=== PATIENT | female | born 1970 | race Caucasian/White ===

== ENCOUNTER 2021-07-01 14:22 | Inpatient (IN) | payer MEDICAID, SELFPAY ==
[2021-07-01 14:23] VITALS: BP 172/119; PULSE 87; RESP 15; TEMP 35.9; O2SAT 98; BMI 39.7
--- NOTE | 2021-07-01 14:57 | EKG12_ITS ---
Test Reason : SWELLING Blood Pressure : / mmHG Vent. Rate : 086 BPM Atrial Rate : 086 BPM P-R Int : 150 ms QRS Dur : 110 ms QT Int : 400 ms P-R-T Axes : 051 -36 108 degrees QTc Int : 478 ms Normal sinus rhythm Left axis deviation Anterior infarct , age undetermined Abnormal ECG Confirmed by SAMAN JENSEN, AMY ([id number]), assistant film editor JEFF GLASGOW ([id number]) on 07/02/2021 1:53:57 P M Referred By: ANSON Confirmed By:DYLON DAVISON MD
--- NOTE | 2021-07-01 15:08 | EDS_ITS ---
HPI History of Present Illness Chief Complaint: Edema Informant: patient Onset/Context/Timing Onset: Days Context: Gradual Onset Timing: Continuous Current Severity: Mild Maximum Severity: Mild Narrative Narrative: 51-year-old female history of yes-[id number] diabetes, hypertension, prior kidney stones and stroke. Patient states that last week she has had swelling of her abdomen with weeping from the skin in both lower extremities. States she normally is not like this. Believes she has had decreased urination. Also short of breath with lying flat. Denies chest pain. Denies any history of cardiac disease or CHF. She is not had kidney problems except one time she had obstructive uropathy from stones and needed ureteral stents. Prior similar symptoms: No Recent Illness/Hospitalization: No [facility] Medical History (Updated 07/01/21 @ 18:[address] Solomon Menard MD) Asthma Bipolar 1 disorder Diabetes HTN (hypertension) with goal to be determined Kidney disease Obesity Schizoaffective disorder Home Medications aspirin 81 mg PO DAILY@0800 11/11/16 [History Last Taken Unknown] atorvastatin 20 mg PO QHS 11/11/16 [History Last Taken Unknown] lisinopril 20 mg PO DAILY 11/11/16 [History Last Taken Unknown] metformin 500 mg PO BIDCM 11/11/16 [History Last Taken Unknown] potassium chloride [K-Dur] 20 meq PO BID 11/11/16 [History Last Taken Unknown] venlafaxine 150 mg PO DAILY 11/11/16 [History Last Taken Unknown] albuterol 90 mcg INHALATION Q4H PRN 07/01/21 [History Last Taken Unknown] amlodipine 5 mg PO DAILY 07/01/21 [History Last Taken Unknown] oxybutynin chloride 10 mg PO DAILY 07/01/21 [History Last Taken Unknown] Allergy/AdvReac Type Severity Reaction Status Date / Time adhesive tape Allergy Unknown Verified 11/11/16 09:40 latex Allergy Unknown Verified 11/11/16 09:40 phenobarbital Allergy Unknown Verified 11/11/16 09:40 Social History Smoking Status: Current every day smoker tobacco type: cigarettes ROS ROS ED ROS Narrative Short of breath lying supine. Swelling in her legs and abdomen. Review of Systems ROS Unobtainable: Denies due to encephalopathy Constitutional Constitutional ED: Denies chills or fever(s) Eyes Eyes: Denies change in vision ENT ENT ED: Denies ear pain or sore throat Cardiovascular Cardiovascular: Reports orthopnea; Denies chest pain or palpitations Respiratory/Chest Respiratory/Chest: Reports dyspnea and orthopnea; Denies cough Gastrointestinal Gastrointestinal: Denies abdominal pain, constipation, diarrhea, melena, nausea or vomiting Genitourinary Genitourinary ED: Denies dysuria or hematuria Musculoskeletal Musculoskeletal: Denies myalgias Integumentary Denies rash Neurologic Neurologic: Denies headache(s) Psychiatric Psychiatric: Denies depression Endocrine Endocrinology: Denies polyuria Allergic/Immunologic Allergic/Immunologic ED: Denies urticaria EXAM Physical Exam Narrative Exam Narrative: Right female vital signs stable. Initial blood pressure 117/119. Pulse ox 90% on room air no signs hypoxia. HEENT exam unremarkable. Neck nontender no JVD. Lungs auscultation bilaterally. Heart regular rate and rhythm no murmur rate about 85. Abdomen morbidly obese. Edematous. No fever noted. Both lower extremities have 1+ pitting edema. Weeping fluid. She is moving all 4 extremities. Back nontender. Neurologically she is awake and alert. No focal motor deficits. Const Vital Signs: 07/01/21 14:23 07/01/21 15:08 07/01/21 15:22 Temperature 96.7 F L Temperature Source Temporal Pulse Rate 87 Respiratory Rate 15 Respiratory Effort Short of Breath Blood Pressure 172/119 H Blood Pressure Mean 136 Pulse Ox 98 Oxygen Delivery Method Room Air Room Air 07/01/21 16:49 Temperature Temperature Source Pulse Rate 64 Respiratory Rate 18 Respiratory Effort Blood Pressure 145/107 H Blood Pressure Mean 119 Pulse Ox 98 Oxygen Delivery Method Room Air Positive well nourished, well developed and obese; Negative for cachectic, contractures or unkempt General Appearance ED: well developed and NAD; Negative for unkempt, cachectic, contractures, cyanotic or diaphoretic Nutritional Appearance: obese; Negative for cachectic HEENT Reports moist mucous membranes Negative for trauma or tenderness Eyes PERRL and EOMs intact bilaterally Neck no lymphadenopathy, supple and no JVD Chest Wall inspection of chest normal and palpation of chest normal Resp normal respiratory effort and clear to auscultation bilaterally Effort and Inspection: Negative for pain with movement Auscultation: Negative for rales or rhonchi GI normal to inspection, nondistended, normoactive bowel sounds, non-tender, non- distended and no masses Auscultation: normoactive bowel sounds Palpation: soft; Negative for tender, guarding or rebound tenderness present Back/Spine no CVA tenderness Extremity Negative for normal to inspection General Extremety ED: Yes edema; Negative for tenderness General Extremity: edema Neuro oriented x3 and CN's II-XII intact bilaterally Sensorium / Orientation: alert and orientation impaired; Negative for lethargic or stuporous Motor Exam: strength 5/5 throughout Psych mental status grossly normal Appearance: Negative for unkempt Skin no rashes or lesions noted and no wounds MDM MDM MDM Narrative Medical decision making narrative: Middle-aged female with bilateral lower extremity edema and edema to her abdomen. Consider the settings of CHF versus obstructive uropathy versus renal failure other. She is being worked up for this. Repeat exam patient doing well at 6 PM. I spoke to the hospitalist physician assistant professor of psychology to admit the patient for further evaluation and work-up. Patient be given a dose of IV Lasix 40 mg. Lab Data Attestation: I reviewed the patient's lab results. Lab results narrative: CBC shows a white count 9.1. Hemoglobin 14.8. Electrolytes unremarkable gap is 7 normal BUN and creatinine is 12 and 0.8. Glu cose 133. Troponin normal at 44 BNP elevated at 2946. Chest x-ray shows a right pleural effusion and cardiomegaly. Labs: Laboratory Results - last 24 hr 07/01/21 07/01/21 07/01/21 15:20 15:20 15:20 WBC 11.1 H RBC 5.43 H Hgb 14.8 Hct 47.2 H MCV 86.9 MCH 27.3 MCHC 31.4 L RDW Std Deviation 52.1 H RDW Coeff of Fabrizio 16.9 H Plt Count 300 MPV 9.0 Immature Gran % (Auto) 0.400 Neut % (Auto) 82.8 H Lymph % (Auto) 10.3 L [place] % (Auto) 5.5 Eos % (Auto) 0.5 Baso % (Auto) 0.5 Absolute Neuts (auto) 9.2 H Absolute Lymphs (auto) 1.14 Nucleated RBC % 0 Sodium 139 Potassium 3.5 Chloride 102 Carbon Dioxide 30.0 Anion Gap 7 BUN 12 Creatinine 0.87 Estim Creat Clear Calc 70.39 Est GFR (MDRD) Af Amer 89 Est GFR (MDRD) Non-Af 74 BUN/Creatinine Ratio 13.8 Glucose 133 H Calcium 8.5 Troponin I High Sens 44 B-Natriuretic Peptide 2946.3 H Radiography Chest X-Ray - ED: 1 View and Read by ED Physician Diagnostic Testing: Clinical Impression(s) from Imaging Studies Chest X-Ray 07/01/21 15:20 IMPRESSION: Findings suggestive of atelectasis/infiltrate in the right lower lobe with blunting of the right costophrenic angle. Mild cardiomegaly. Electronically Signed: Ayan Wiggins MD at 15:37 EDT , Service support , Rhythm Strip Rhythm Strip: Sinus Rhythm Rate: 86 Ectopy: None EKG Initial EKG: Attestation: I personally reviewed and interpreted this EKG as follows: Interpretation: Sinus Rhythm and No Acute Injury Pattern Comments: Normal sinus rhythm rate 86 no acute signs of NH or ischemia. Prior EKG tracings: not available for review Discharge Plan Dx/Rx/DC Orders Clinical Impression: CHF (congestive heart failure), Peripheral edema, Pleural effusion Disposition Disposition: Acute Care Hospital [facility]
--- NOTE | 2021-07-01 15:20 | RAD_ITS ---
STUDY: X-RAY CHEST REASON FOR EXAM: Female, 51 years old. Chest pain TECHNIQUE: Single AP portable view of the chest. COMPARISON: Comparison is made with prior study 05/21/2012. FINDINGS: EKG are seen. There is elevation of the right hemidiaphragm with right basilar atelectasis and/or infiltrate. Blunting of the right costophrenic angle. There is mild cardiac enlargement. Normal mediastinum and raad. Normal visualized pulmonary arteries. Normal visualized aortic arch and descending thoracic aorta. Normal visualized thoracic spine. Normal visualized ribs, clavicles, and shoulders. There is no demonstrated abnormality of the visualized soft tissue structures of the upper abdomen. RAD/Chest 1 View (Portable) IMPRESSION: Findings suggestive of atelectasis/infiltrate in the right lower lobe with blunting of the right costophrenic angle. Mild cardiomegaly. Electronically Signed: Ayan Wiggins MD at 15:37 EDT , Service support ,
[2021-07-01 15:29] LABS: Absolute Lymphocyte Count 1.14 X10^3/uL (0.83-4.51); Absolute Neutrophil Count 9.2 X10^3/uL (2.0-7.7); Basophil# 0.05 X10^3/uL; Basophil% 0.5 % (0-1); Eosinophil# 0.05 X10^3/uL; Eosinophils% 0.5 % (0-5); Hematocrit 47.2 % (37-47); Hemoglobin 14.8 g/dL (12.0-15.0); Lymphocyte # 1.14 X10^3/ul (0.83-4.51); Lymphocyte % 10.3 % (19-41); Mean Corp Hgb Conc 31.4 g/dL (32-36); Mean Corpuscular Hgb 27.3 pg (27.0-32.0); Mean Corpuscular Volume 86.9 fL (81-99); Monocyte# 0.61 X10^3/uL; Monocyte% 5.5 % (0-10); NRBC Flagged by Analyzer 0 % (0-5); Neutrophil # 9.16 X10^3/uL (2.7-7.7); Neutrophil % 82.8 % (47-70); Platelet Count 300 K/mm3 (150-450); RBC Distribution Width CV 16.9 % (11.6-14.6); RBC Distribution Width SD 52.1 fl (35.1-43.9); Red Blood Count 5.43 M/mm3 (4.2-5.4); White Blood Count 11.1 K/mm3 (4.4-11.0)
[2021-07-01 15:55] LABS: BNP,B-Type NATRIURETIC PEPTIDE 2946.3 pg/mL (0-100)
[2021-07-01 16:00] LABS: Anion Gap 7 (5-15); BUN 12 mg/dL (7-18); BUN/Creat Ratio 13.8 RATIO (10-20); Calcium,Total 8.5 mg/dL (8.5-10.1); Chloride 102 mmol/L (98-107); Creatinine, Serum 0.87 mg/dL (0.55-1.02); EST Glomerular Filtration Rate 74 mL/min (>60); Est Glom Filt Rate - Afr Amer 89 mL/min (>60); Estimated Creatinine Clearance 70.39 ml/min; Glucose 133 mg/dL (74-106); Potassium 3.5 mmol/L (3.5-5.1); Sodium Level 139 mmol/L (136-145); Troponin-I HS 44 pg/mL (3.0-54.0)
[2021-07-01 16:49] VITALS: BP 145/107; PULSE 64; RESP 18; O2SAT 98
[2021-07-01] MEDS: Furosemide 40 MG/4 ML Vial IV (18:14)
[2021-07-01 18:19] VITALS: BP 143/66; PULSE 92; RESP 20; TEMP 37.1; O2SAT 98
--- NOTE | 2021-07-01 18:20 | HP.PCM_ITS ---
Documented by User: ZAIRA Castañeda 07/01/21 18:40 HPI - General General Date of Admission: 07/01/21 Date of Service: 07/01/21 Chief Complaint: Anasarca HPI Narrative SARAH CARLTON, is a 51 F who presents with complaints of increased swelling to belly and bilateral lower edema. Patient denies history of heart failure. Patient states that she was recently diagnosed with hypertension. Patient denies fever, chills, cough, chest pain, nausea, vomiting. Patient makes statements during evaluation regarding alien in her belly. Patient denies psychiatric disorders however patient does have history of schizoaffective disorder and bipolar disorder. [facility] Medical History (Updated 07/01/21 @ 18:30 by ZAIRA Castañeda) Asthma Bipolar 1 disorder Diabetes HTN (hypertension) with goal to be determined Kidney disease Obesity Schizoaffective disorder Home Medications aspirin 81 mg PO DAILY@0900 11/11/16 [History Last Taken 07/01/21] lisinopril 20 mg PO DAILY@0900 11/11/16 [History Last Taken 07/01/21] metformin 500 mg PO BIDCM@0900,1700 11/11/16 [History Last Taken 07/01/21] potassium chloride [K-Dur] 20 meq PO BID@0900,2100 11/11/16 [History Last Taken 07/01/21] venlafaxine 150 mg PO DAILY@0900 11/11/16 [History Last Taken 07/01/21] albuterol sulfate 2 inh INHALATION Q4H PRN 07/01/21 [History Last Taken 06/27/21] amlodipine 5 mg PO DAILY@0900 07/01/21 [History Last Taken 07/01/21] ondansetron 4 mg PO Q6H PRN 07/01/21 [History Last Taken Unknown] oxybutynin chloride 10 mg PO DAILY@0900 07/01/21 [History Last Taken 07/01/21] Allergy/AdvReac Type Severity Reaction Status Date / Time adhesive tape Allergy Unknown Verified 11/11/16 09:40 latex Allergy Unknown Verified 11/11/16 09:40 phenobarbital Allergy Unknown Verified 11/11/16 09:40 Family History unable to obtain unable to obtain Surgical History (Updated 07/01/21 @ 18:23 by ZAIRA Castañeda) History of cholecystectomy History of hysterectomy Social History (Updated 07/01/21 @ 18:24 by ZAIRA Castañeda) Smoking Status: Current every day smoker tobacco type: cigarettes alcohol intake: never substance use type: does not use ROS Constitutional Constitutional: Denies anorexia, chills, fatigue, fever(s), malaise or weakness Cardiovascular Cardiovascular: Reports edema; Denies chest pain, palpitations or syncope Respiratory/Chest Respiratory/Chest: Reports wheezing; Denies cough, shortness of breath at rest or shortness of breath with exertion Gastrointestinal Gastrointestinal: Denies abdominal pain, constipation, diarrhea, nausea or vomiting Genitourinary Genitourinary: Denies dysuria Musculoskeletal Musculoskeletal: Denies back pain, extremity pain, joint pain or joint stiffness Integumentary Integumentary: Denies dry skin Neurologic Neurologic: Denies abnormal gait, abnormal speech, confusion or dizziness Psychiatric Psychiatric: Denies anxiety or depression Endocrine Endocrinology: Denies change in body appearance Hematologic/Lymphatic Hematologic/Lymphatic: Denies anemia or easy bleeding Vital Signs Vital Signs Vital Signs: 07/01/21 14:23 07/01/21 15:08 07/01/21 15:22 Temperature 96.7 F L Temperature Source Temporal Pulse Rate 87 Respiratory Rate 15 Respiratory Effort Short of Breath Blood Pressure 172/119 H Blood Pressure Mean 136 Pulse Ox 98 Oxygen Delivery Method Room Air Room Air 07/01/21 16:49 Temperature Temperature Source Pulse Rate 64 Respiratory Rate 18 Respiratory Effort Blood Pressure 145/107 H Blood Pressure Mean 119 Pulse Ox 98 Oxygen Delivery Method Room Air Weight Weight: 239 lb Body Mass Index (BMI) 39.7 Physical Exam Const alert and oriented x3 General Appearance: cooperative HEENT normocephalic and head/scalp atraumatic Eyes conjunctivae normal and no scleral icterus Neck full ROM and supple General: trachea midline Resp normal respiratory effort and normal air movement Effort and Inspection: tachypneic Auscultation: wheezes expiratory wheezes and scattered wheezes and diminished lung sounds Cardio regular rate, regular rhythm, S1 normal heart sound, S2 normal heart sound and peripheral pulses 2+ throughout GI normal to inspection, nondistended, normoactive bowel sounds, soft to palpation and non-tender Extremity normal capillary refill and no clubbing, cyanosis or edema General Extremity: no tenderness to palpation of joints or extremities Skin General Skin Exam: no breakdown and turgor normal Lesions: no lesions Rashes: no rashes Neuro no focal motor deficits and no sensory deficits noted Speech: speech normal Motor Exam: Negative for general weakness Psych mental status grossly normal and cooperative Attitude: bizarre Activity / Motor Behavior: fidgetting and restless Speech: excessive Mood & Affect: elevated mood Thought Content: delusion(s) Delusional Thought Content Details: Positive for other (Patient states that she believes there was an alien in her bowing) Results Lab / Micro Data Result Diagrams: 07/01/21 15:20 07/01/21 15:20 Labs: Laboratory Results - last 24 hr 07/01/21 15:20: WBC 11.1 H, RBC 5.43 H, Hgb 14.8, Hct 47.2 H, MCV 86.9, MCH 27.3, MCHC 31.4 L, RDW Std Deviation 52.1 H, RDW Coeff of Fabrizio 16.9 H, Plt Count 300, MPV 9.0, Immature Gran % (Auto) 0.400, Neut % (Auto) 82.8 H, Lymph % (Auto) 10.3 L, [place] % (Auto) 5.5, Eos % (Auto) 0.5, Baso % (Auto) 0.5, Absolute Neuts (auto) 9.2 H, Absolute Lymphs (auto) 1.14, Nucleated RBC % 0 07/01/21 15:20: Sodium 139, Potassium 3.5, Chloride 102, Carbon Dioxide 30.0, Anion Gap 7, BUN 12, Creatinine 0.87, Estim Creat Clear Calc 70.39, Est GFR (MDRD) Af Amer 89, Est GFR (MDRD) Non-Af 74, BUN/Creatinine Ratio 13.8, Glucose 133 H, Calcium 8.5, Troponin I High Sens 44 07/01/21 15:20: B-Natriuretic Peptide 2946.3 H Rhythm Strip Rhythm Strip: Sinus Rhythm Rate: 86 Ectopy: None Radiology Impression Chest X-Ray 07/01/21 15:20 IMPRESSION: Findings suggestive of atelectasis/infiltrate in the right lower lobe with blunting of the right costophrenic angle. Mild cardiomegaly. Electronically Signed: Ayan Wiggins MD at 15:37 EDT , Service support , Assessment & Plan Assessment/Plan (1) CHF (congestive heart failure): QUALIFIERS: Heart failure chronicity: unspecified Heart failure type: unspecified Qualified Code(s): I50.9 - Heart failure, unspecified (2) Pleural effusion: (3) Peripheral edema: PLAN: 1. Congestive heart failure -Admit to PCU for new findings upon x-ray including right lower lobe infiltrate and mild cardiomegaly as well as elevated BNP -Trend cardiac enzymes -Daily weights with strict intake and output -Echocardiogram in a.m. -Elevate bilateral lower extremities -Encourage incentive spirometry -Patient will be initiated on IV Lasix drip at 10 mg/h and -CBC, BMP, lipid panel, magnesium, phosphorus, TSH ordered for a.m. -Repeat twelve-lead EKG ordered for a.m. -Patient currently on room air, oxygen ordered as needed -Cardiac carb-controlled diet ordered -Continue lisinopril, amlodipine. 2. Diabetes mellitus type 2 -AC at bedtime blood sugars with sliding scale insulin ordered -Continue Metformin -Hypoglycemia protocol ordered per protocol 3. Tobacco use -Nicotine patch ordered daily -Inpatient smoking cessation ordered Will continue patient's home medications for chronic diseases. DVT prophylaxis-subcu Lovenox This patient was seen by ZAIRA Castañeda under the supervision of Dr. Maria. Documented by User: Dr. Cem Maria DO 07/01/21 19:41 HPI - General General Date of Admission: 07/01/21 [facility] Medical History (Updated 07/01/21 @ 18:30 by ZAIRA Castañeda) Asthma Bipolar 1 disorder Diabetes HTN (hypertension) with goal to be determined Kidney disease Obesity Schizoaffective disorder Home Medications aspirin 81 mg PO DAILY@0900 11/11/16 [History Last Taken 07/01/21] lisinopril 20 mg PO DAILY@0900 11/11/16 [History Last Taken 07/01/21] metformin 500 mg PO BIDCM@0900,1700 11/11/16 [History Last Taken 07/01/21] potassium chloride [K-Dur] 20 meq PO BID@0900,2100 11/11/16 [History Last Taken 07/01/21] venlafaxine 150 mg PO DAILY@0900 11/11/16 [History Last Taken 07/01/21] albuterol sulfate 2 inh INHALATION Q4H PRN 07/01/21 [History Last Taken 06/27/21] amlodipine 5 mg PO DAILY@0900 07/01/21 [History Last Taken 07/01/21] ondansetron 4 mg PO Q6H PRN 07/01/21 [History Last Taken Unknown] oxybutynin chloride 10 mg PO DAILY@0900 07/01/21 [History Last Taken 07/01/21] Allergy/AdvReac Type Severity Reaction Status Date / Time adhesive tape Allergy Unknown Verified 11/11/16 09:40 latex Allergy Unknown Verified 11/11/16 09:40 phenobarbital Allergy Unknown Verified 11/11/16 09:40 Family History unable to obtain Surgical History (Updated 07/01/21 @ 18:23 by ZAIRA Castañeda) History of cholecystectomy History of hysterectomy Social History (Updated 07/01/21 @ 18:24 by Valeria Macdonald NP-C) Smoking Status: Current every day smoker tobacco type: cigarettes alcohol intake: never substance use type: does not use Results Lab / Micro Data Result Diagrams: 07/01/21 15:20 07/01/21 15:20 Charges/Coding Addendum Addendum: Patient was seen and examined independently of Suzie Alfredo, patient came to the emergency room at [facility] [place] for evaluation of severe swelling in her legs with weeping of fluid from her skin. Patient also complained of having swelling over her abdominal area. Finally, she complained of feeling short of breath especially when lying flat. Patient denied any chest pain, she denied any history of coronary artery disease, she stated that she has had strokes in the past. On examination she appeared her stated age, she does not appear to be in any distress, patient is morbidly obese. Vital signs as documented. Skin warm and dry and without overt rashes. Neck without JVD, thyroid appears normal, trachea is midline, neck is supple. Lungs clear, normal air movement was noted. Heart exam notable for regular rhythm, normal sounds and absence of murmurs, rubs or gallops. Abdomen-patient is morbidly obese, there is firm edema noted over the abdominal wall extending into the lower back, bowel sounds are present in all 4 quadrants, no abdominal tenderness was noted. Extremities-there is severe lower extremity edema noted along with weeping of the skin, the edema is firm and nonpitting, no cyanosis was noted, no clubbing was noted. Neuro: Cranial nerves II through XII are grossly intact, no focal motor deficits were noted, sensation to light touch and pinprick is intact, motor exam 5/5 throughout. Psych: Patient is alert and oriented x3, she does not appear anxious or depressed, she does not appear agitated. Patient has obvious anasarca, the etiology of the anasarca may be from an undetected cardiomyopathy. Patient will be admitted with a diagnosis of CHF and anasarca, she will need an echocardiogram performed, she will be placed on Lasix drip. I have reviewed Suzie Torres's history and physical including her medical assessment and plan of care and endorse it with the addition of #4 diagnosis: Morbid obesity, #5 diagnosis: Schizoaffective disorder, #6 diagnosis chronic asthma Visit Charges Inpatient E&M: 79602 Init Hosp L3
--- NOTE | 2021-07-01 19:24 | ECHOCS_ITS ---
Reason For Study: CHF Procedure This was a 2D Doppler, Color Flow transthoracic echocardiogram. The study was technically difficult. Due to body habitus. Contrast injection was performed. Exam performed portable in patient room. Left Ventricle Mildly dilated left ventricle. The estimated ejection fraction is 15 %. There is evidence of diastolic dysfunction. No regional wall motion abnormalities noted. Right Ventricle Mildly dilated right ventricle. Normal systolic function. Atria The left atrium is mildly enlarged. The right atrium is mildly enlarged. Mitral Valve There is no mitral valve stenosis. Trivial mitral valve insufficiency. Tricuspid Valve There is no tricuspid stenosis. Trivial tricuspid valve insufficiency. Pulmonary artery systolic pressure is 35-40 mmHg. Aortic Valve Trisinus/trileaflet aortic valve. There is no aortic stenosis. No aortic valve insufficiency. Pulmonic Valve There is no pulmonic valvular stenosis. Trivial pulmonic valve insufficiency. Great Vessels Normal aortic root. Pericardium/Pleural No pericardial effusion. Medication Diluted definity 5.0ml given slow IV push to enhance endocardial definition. MMode/2D Measurements & Calculations LVIDd: 6.0 cm IVSd: 1.1 cm Ao root diam: 2.8 cm LVIDs: 5.2 cm LVPWd: 1.2 cm RVDd: 4.2 cm FS: 13.1 % LAV(MOD-bp): 84.3 ml LVAd ap4: 49.6 cm2 LVAd ap2: 52.2 cm2 LAV(MOD-bp) Indexed: 35.2 ml/m2 LVLd ap4: 10.2 cm LVLd ap2: 10.6 cm LAV(MOD-sp2): 89.6 ml EDV(MOD-sp4): 197.5 ml EDV(MOD-sp2): 213.0 ml LAV(MOD-sp4): 79.3 ml EDV(sp4-el): 205.4 ml EDV(sp2-el): 218.7 ml LVAs ap4: 41.1 cm2 LVAs ap2: 41.2 cm2 LVLs ap4: 9.9 cm LVLs ap2: 9.1 cm ESV(MOD-sp4): 141.4 ml ESV(MOD-sp2): 153.1 ml ESV(sp4-el): 145.3 ml ESV(sp2-el): 158.8 ml EF(MOD-sp4): 28.4 % EF(MOD-sp2): 28.1 % EF(sp4-el): 29.2 % SV(MOD-sp4): 56.1 ml SV(MOD-sp2): 59.9 ml SV(sp4-el): 60.1 ml LA A4 area: 24.6 cm2 LA dimension(2D): 4.8 cm Doppler Measurements & Calculations Lat Peak E' Woodrow: 4.2 cm/sec MV V2 max: 120.0 cm/sec MV P1/2t max woodrow: 120.0 cm/sec MV max P.8 mmHg MV P1/2t: 43.0 msec MV V2 mean: 65.8 cm/sec MV mean P.0 mmHg MV dec slope: 817.9 cm/sec2 MV V2 VTI: 19.5 cm MVA(P1/2t): 5.1 cm2 Ao V2 max: 165.7 cm/sec LV V1 max: 86.0 cm/sec PA V2 max: 86.0 cm/sec Ao max P.0 mmHg LV V1 max P.0 mmHg TR max woodrow: 247.8 cm/sec TR max P.6 mmHg ECHO/Echo Complete W/ Contrast Interpretation Summary There is evidence of diastolic dysfunction. The left atrium is mildly enlarged. The right atrium is mildly enlarged. Mildly dilated right ventricle. Trivial mitral valve insufficiency. The estimated ejection fraction is 15 %. Ordering Physician: Valeria Macdonald Referring Physician: Sterling Carranza Performed By: Nataliia Faust, [place], RVT
[2021-07-01 19:35] VITALS: PULSE 85
[2021-07-01 19:52] VITALS: BP 153/114; PULSE 76; RESP 20; TEMP 36.4; O2SAT 96; BMI 51.2
[2021-07-01 20:30] LABS: Bedside Glucose 109 mg/dL (70-110)
[2021-07-01 21:08] LABS: Troponin-I HS 40 pg/mL (3.0-54.0)
[2021-07-01 21:52] LABS: Troponin-I HS 50 pg/mL (3.0-54.0)
[2021-07-01] MEDS: Furosemide 500 MG in Empty Viaflex 50 mL 1 EACH CONT INF (22:18)
[2021-07-01] MEDS: Atorvastatin Calcium 20 MG Tablet PO (22:24)
[2021-07-01] MEDS: Potassium Chloride Oral Tablet 20 MEQ PO (22:24)
--- NOTE | 2021-07-01 23:06 | PCS.PANDOC ---
PANDEMIC DOCUMENTATION INITIATED: Date: 04/27/2021 Time: 190
[2021-07-01 23:30] VITALS: O2SAT 99
[2021-07-01] MEDS: Nystatin Powder 15gm Bottle 1 APPLIC TOPICAL (23:38)
[2021-07-02] VITALS (9 sets, daily range): BP systolic 103–160; BP diastolic 48–118; PULSE 68–84; RESP 14–18; TEMP 36.5–36.8; O2SAT 92–100
[2021-07-02] MEDS: Acetaminophen 325 MG Tablet 650 MG PO (00:32)
[2021-07-02] MEDS: MELATONIN 3 MG TABLET PO (00:33)
--- NOTE | 2021-07-02 00:34 | NURSING ---
pt awake, c/o per abdullahi area hurting, rating it a 7/10. tylenol and melatonin given
[2021-07-02] MEDS: Nystatin Powder 15gm Bottle 1 APPLIC TOPICAL ×3 (05:43→21:39)
--- NOTE | 2021-07-02 05:55 | EKG12_ITS ---
Test Reason : AM EKG Blood Pressure : / mmHG Vent. Rate : 081 BPM Atrial Rate : 081 BPM P-R Int : 150 ms QRS Dur : 108 ms QT Int : 410 ms P-R-T Axes : 043 -32 092 degrees QTc Int : 476 ms Normal sinus rhythm Left axis deviation Poor R wave progression in anterior leads Abnormal ECG When compared with ECG of 01-JUL-2021 15:10, MANUAL COMPARISON REQUIRED, DATA IS UNCONFIRMED Confirmed by SAMAN JENSEN, AMY ([id number]), supervising editor news reel JEFF GLASGOW ([id number]) on 07/02/2021 1:59:41 P M Referred By: FERDINAND Confirmed By:DYLON DAVISON MD
[2021-07-02 06:09] LABS: Absolute Lymphocyte Count 1.28 X10^3/uL (0.83-4.51); Absolute Neutrophil Count 7.7 X10^3/uL (2.0-7.7); Basophil# 0.04 X10^3/uL; Basophil% 0.4 % (0-1); Eosinophil# 0.06 X10^3/uL; Eosinophils% 0.6 % (0-5); Hematocrit 47.6 % (37-47); Hemoglobin 14.6 g/dL (12.0-15.0); Lymphocyte # 1.28 X10^3/ul (0.83-4.51); Lymphocyte % 13.1 % (19-41); Mean Corp Hgb Conc 30.7 g/dL (32-36); Mean Corpuscular Hgb 26.8 pg (27.0-32.0); Mean Corpuscular Volume 87.5 fL (81-99); Mean Platelet Vol. 9.1 fl (6.2-12.0); Monocyte# 0.69 X10^3/uL; Monocyte% 7.1 % (0-10); NRBC Flagged by Analyzer 0 % (0-5); Neutrophil # 7.65 X10^3/uL (2.7-7.7); Neutrophil % 78.5 % (47-70); Platelet Count 296 K/mm3 (150-450); RBC Distribution Width CV 16.7 % (11.6-14.6); Red Blood Count 5.44 M/mm3 (4.2-5.4); White Blood Count 9.8 K/mm3 (4.4-11.0)
[2021-07-02 06:55] LABS: Anion Gap 7 (5-15); BUN 14 mg/dL (7-18); Calcium,Total 8.5 mg/dL (8.5-10.1); Chloride 102 mmol/L (98-107); Cholesterol 163 mg/dL (200); Creatinine, Serum 0.94 mg/dL (0.55-1.02); EST Glomerular Filtration Rate 68 mL/min (>60); Est Glom Filt Rate - Afr Amer 82 mL/min (>60); Estimated Creatinine Clearance 67.77 ml/min; Glucose 150 mg/dL (74-106); High Density Lipoprotein 40 mg/dL; Magnesium 1.8 mg/dL (1.6-2.6); Phosphorus 4.1 mg/dL (2.5-4.9); Potassium 3.5 mmol/L (3.5-5.1); Sodium Level 140 mmol/L (136-145); Thyroid Stim Hormone (TSH) 2.45 uIU/mL (0.358-3.74); Triglycerides 94 mg/dL; Very Low Density Lipoprotein 19 mg/dL (5-40)
[2021-07-02 07:20] LABS: Bedside Glucose 129 mg/dL (70-110)
[2021-07-02] MEDS: Enoxaparin 40 MG/0.4 ML Syringe SC (08:34)
[2021-07-02] MEDS: Lisinopril 20 MG Tablet PO (08:34)
[2021-07-02] MEDS: Potassium Chloride Oral Tablet 20 MEQ PO ×2 (08:34→21:37)
[2021-07-02] MEDS: metFORMIN HCl 500 MG Tablet PO (08:34)
[2021-07-02] MEDS: amLODIPine 5 MG Tablet PO (08:34)
[2021-07-02] MEDS: Aspirin E.C. 81 MG Tablet PO (08:34)
[2021-07-02] MEDS: Venlafaxine XR 150 MG Capsule PO (08:34)
[2021-07-02] MEDS: Tolterodine Tartrate 2 MG CAP.SA PO (08:34)
[2021-07-02] MEDS: Glucerna Shake 120 ML LIQUID PO ×2 (08:38→12:57)
--- NOTE | 2021-07-02 10:48 | CASEMGMT ---
CHRIS REEVES assessment: Face to Face with patient for initial transition planning/care coordination assessment. CHRIS REEVES introduced self and role at [facility], pt voices understanding and consents to assessment. Pt is sitting up on side of bed in no distress on room air. Pt is A/Ox4 and answers all questions appropriately. Care providers, pharmacy, and demographics verified/updated. Presentation: Pt c/o bilat lower extremity edema/weeping-pt states hx DM, HTN Admitting dx: CHF, peripheral edema PCP: -Pt requesting PCP list as she states her and Dr. Carranza will be 'parting ways'-in-network PCP list provided Specialists: Multiple specialists at [facility] main, including but not limited to: neuro, studio manager, etc Preferred Pharmacy: [facility] Insurance: [facility] Prescription Benefit: [facility] Living Will/HPOA: Pt states has LW/HPOA and is aware that they are not on file at [facility]. Pt states her son, You, is HPOA. LNOK: You Ortega, son/HPOA; Meera Chavarria, daughter Living Arrangements: Pt states lives in apartment at [facility] with her cat with no steps and states no concerns at home. Pt states has been having some difficulty with ADL's d/t increased fluid/CHF. Transportation: Pt states family drives or she walks where she needs to go and states no concerns at home. DME/HHC: Pt states has a rollator and grab bars. Pt states is 'working on getting a shower chair.' Pt states has had HHC in the past and has been to [facility]. Pt is interested in HHC and pt provided a list of HHC providers including quality and resource use data and consistent with the patient?s preferred geographic region, medical needs, and insurance network. Pt states no concerns with going home at time of discharge. Pt is disabled. Pt states smokes a pack of cigarettes daily and does not drink ETOH. Pt states no further concerns/needs. CM to follow for HHC and any further discharge planning/needs. Advised pt to ask for CM if any further questions/concerns/needs arise, voices understanding. Pt Goal: Home Plan: Home, pending HHC decision. [place] CHRIS REEVES
--- NOTE | 2021-07-02 13:00 | PCM.PN.HOSP ---
Documented by User: Annette Jaime CROSSBAR SWITCH ADJUSTER, CROSSBAR SWITCH ADJUSTER-C 07/02/21 13:17 Subjective Subjective Patient seen and examined. Reports improvement in shortness of breath and abdominal and lower extremity swelling. Denies new symptoms or complaints. Objective Data Objective Data Vital Signs: Vital Signs Temp Pulse Resp BP Pulse Ox 98.2 F 83 18 160/117 H 99 07/02/21 08:30 07/02/21 08:30 07/02/21 08:30 07/02/21 08:30 07/02/21 08:30 Oxygen Flow Rate (L/min) 2 Oxygen Delivery Method Room Air Weight: 313 lb 0.902 oz Body Mass Index (BMI) 51.2 Intake & Output: Intake and Output for Last 24 Hours 06/30/21 07/01/21 07/02/21 23:59 23:59 23:59 Intake Total 640 / 640 Output Total 4625 / 4625 Balance -3985 / -3985 Lab / Micro Data Result Diagrams: 07/02/21 05:45 07/02/21 05:45 Labs: Laboratory Results - last 24 hr 07/01/21 15:20: WBC 11.1 H, RBC 5.43 H, Hgb 14.8, Hct 47.2 H, MCV 86.9, MCH 27.3, MCHC 31.4 L, RDW Std Deviation 52.1 H, RDW Coeff of Fabrizio 16.9 H, Plt Count 300, MPV 9.0, Immature Gran % (Auto) 0.400, Neut % (Auto) 82.8 H, Lymph % (Auto) 10.3 L, Victoria % (Auto) 5.5, Eos % (Auto) 0.5, Baso % (Auto) 0.5, Absolute Neuts (auto) 9.2 H, Absolute Lymphs (auto) 1.14, Nucleated RBC % 0 07/01/21 15:20: Sodium 139, Potassium 3.5, Chloride 102, Carbon Dioxide 30.0, Anion Gap 7, BUN 12, Creatinine 0.87, Estim Creat Clear Calc 70.39, Est GFR (MDRD) Af Amer 89, Est GFR (MDRD) Non-Af 74, BUN/Creatinine Ratio 13.8, Glucose 133 H, Calcium 8.5, Troponin I High Sens 44 07/01/21 15:20: B-Natriuretic Peptide 2946.3 H 07/01/21 19:49: POC Glucose 109 07/01/21 20:10: Troponin I High Sens 40 07/01/21 21:11: Troponin I High Sens 50 07/02/21 05:45: WBC 9.8, RBC 5.44 H, Hgb 14.6, Hct 47.6 H, MCV 87.5, MCH 26.8 L, MCHC 30.7 L, RDW Std Deviation 53.0 H, RDW Coeff of Fabrizio 16.7 H, Plt Count 296, MPV 9.1, Immature Gran % (Auto) 0.300, Neut % (Auto) 78.5 H, Lymph % (Auto) 13.1 L, Victoria % (Auto) 7.1, Eos % (Auto) 0.6, Baso % (Auto) 0.4, Absolute Neuts (auto) 7.7, Absolute Lymphs (auto) 1.28, Nucleated RBC % 0 07/02/21 05:45: Sodium 140, Potassium 3.5, Chloride 102, Carbon Dioxide 31.0, Anion Gap 7, BUN 14, Creatinine 0.94, Estim Creat Clear Calc 67.77, Est GFR (MDRD) Af Amer 82, Est GFR (MDRD) Non-Af 68, BUN/Creatinine Ratio 15.0, Glucose 150 H, Calcium 8.5, Phosphorus 4.1, Magnesium 1.8, Triglycerides 94, Cholesterol 163, LDL Cholesterol 104, VLDL Cholesterol 19, HDL Cholesterol 40, TSH 2.45 07/02/21 07:14: POC Glucose 129 H Radiography Diagnostic Testing: Radiology Impression Chest X-Ray 07/01/21 15:20 IMPRESSION: Findings suggestive of atelectasis/infiltrate in the right lower lobe with blunting of the right costophrenic angle. Mild cardiomegaly. Electronically Signed: Ayan Wiggins MD at 15:37 EDT , Service support , Echocardiogram 07/01/21 19:24 Interpretation Summary There is evidence of diastolic dysfunction. The left atrium is mildly enlarged. The right atrium is mildly enlarged. Mildly dilated right ventricle. Trivial mitral valve insufficiency. The estimated ejection fraction is 15 %. Ordering Physician: Valeria Macdonald Referring Physician: Sterling Carranza Performed By: Nataliia Faust, CAROLINA, RVT Rhythm Strip Rhythm Strip: Sinus Rhythm Rate: 86 Ectopy: None Physical Exam Const alert, oriented x3 and no apparent distress Orientation / Consciousness: awake, oriented to person, oriented to place and oriented to time Nutritional Appearance: obese HEENT normocephalic and moist oral mucous membranes Eyes PERRL, EOMs intact bilaterally and conjunctivae normal Neck no lymphadenopathy Resp clear to auscultation bilaterally Auscultation: diminished lung sounds Cardio regular rate, regular rhythm and no murmurs Peripheral Pulses: pulses 2+ throughout GI normal to inspection, nondistended, normoactive bowel sounds, non-tender and non-distended Extremity normal to inspection General Extremity: edema bilateral lower extremity Details: moderate Skin no rashes or lesions noted Lesions: no lesions Rashes: no rashes Trauma: no lacerations or abrasions Neuro CN's II-XII intact bilaterally, no focal motor deficits, no sensory deficits noted and deep tendon reflexes 2+ bilaterally Psych mental status grossly normal and affect normal Assessment & Plan Assessment/Plan (1) CHF (congestive heart failure): QUALIFIERS: Heart failure chronicity: unspecified Heart failure type: unspecified Qualified Code(s): I50.9 - Heart failure, unspecified PLAN: 1. Acute heart failure with reduced ejection fraction-chest x-ray consistent with CHF. BNP 2946. Enzymes, TSH normal. Echocardiogram completed and demonstrates an EF of 15%. On Lasix drip. Strict I&O. Daily weight. Cardiology consulted. 2. Type 2 diabetes mellitus-Metformin on hold. Accu-Cheks with sliding scale insulin. Check hemoglobin A1c. 3. Hypertension-remains above goal, recently placed on amlodipine, lisinopril. Increase amlodipine to 10 mg daily and lisinopril to 20 mg twice daily. As needed hydralazine for systolic blood pressure greater than 160. 4. SHARI-previously on CPAP however has not worn in several years. Will need repeat sleep study as outpatient and follow-up with pulmonary medicine. 5. Morbid obesity-BMI 50. Dietitian consult. 6. Schizoaffective/bipolar disorder-on venlafaxine. 7. Mild intermittent asthma-no exacerbation. As needed albuterol aerosol. 8. Tobacco dependence-encouraged cessation. DVT prophylaxis-Lovenox subcu This patient was seen by Annette Jaime NP-C under the supervision of Dr. Tesfaye. Documented by User: Dr. Doris Tesfaye DO 07/02/21 18:25 Subjective Subjective This patient was seen in conjunction with Annette Jaime NP. The following is representation my independent history and physical examination. Please see below for addendum to the above. Patient states that her weight gain and swelling has been an ongoing issue. She states that she is fired her PCP because of her ignoring her issues. She was unclear exactly how long it had been going on, but it did indicate it had been going on for some time. She has multiple cardiovascular risk factors and at the time of my evaluation her echo was still pending. Objective Data Lab / Micro Data Result Diagrams: 07/02/21 05:45 07/02/21 05:45 Physical Exam Const alert, oriented x3 and no apparent distress Constitutional Narrative: Super morbidly obese white female lying in right side lying in bed, appears comfortable and nontoxic but markedly edematous Exam Limitations: no limitations Nutritional Appearance: morbidly obese HEENT head/scalp atraumatic, moist oral mucous membranes and oropharynx normal HEENT Narrative: Edentulous, Mallampati 3, thrush Head and Scalp: normocephalic Mouth: oral and palatal mucosa normal Resp normal respiratory effort, no retractions and no use of accessory muscles Resp Narrative: Diffusely diminished but exam is limited secondary to body habitus Auscultation: Negative for crackles, rales, rhonchi or wheezes Cardio regular rate, regular rhythm, S1 normal heart sound, S2 normal heart sound, no murmurs, no rub, no gallops, no clicks and no JVD GI normal to inspection, nondistended, normoactive bowel sounds, soft to palpation, non-tender and non-distended Extremity Extremity Narrative: Marked pitting edema bilateral lower extremities up into the thighs 3+ no cyanosis or clubbing General Extremity: edema Peripheral Pulses: Yes pulses 2+ throughout Skin no rashes or lesions noted, no wounds, skin turgor normal, no jaundice, no petechiae and no mottling Neuro oriented x3, CN's II-XII intact bilaterally, moves all extremities and no focal motor deficits Sensorium / Orientation: awake, alert, oriented to person, oriented to place and oriented to time Speech: speech normal Motor Exam: strength 5/5 throughout Psych Psych Narrative: Affect is somewhat strange but patient is appropriately interactive Assessment & Plan Assessment/Plan (1) Heart failure with reduced ejection fraction: (2) Anasarca: (3) Secondary right ventricular dilation: PLAN: Assessment: HFrEF Anasarca RV dysfunction-suspect secondary to COPD/SHARI/OHS [id number] Hypertension SHARI COPD Morbid obesity Urinary incontinence Schizoaffective disorder Bipolar disorder Plan: -Echocardiogram done today shows an EF of 15% which is a new diagnosis for her as well as dilated right ventricle and biatrial enlargement -Cardiology consult and suspect patient will need a left heart catheterization -Would be beneficial if a right and left heart catheterization were performed -Start BiPAP at night 27/04--> this may help with diuresis -Patient will need follow-up with pulmonary in us repeat sleep study as she has been noncompliant with her CPAP as of recently -Add carvedilol 6.25 mg twice daily -Continue lisinopril--> may need dose reduction will watch blood pressure closely -Discontinue amlodipine -Continue aspirin -Continue home diabetes regimen--> A1c on admission was 6.3 with a normal creatinine -Continue Lasix drip -We will considering adding Aldactone if patient tolerates the above changes well -Continue daily weights strict I's and O's with fluid and sodium restriction -Patient is down 2 kg from admission Charges/Coding Visit Charges Inpatient E&M: 01006 Subs Hosp L2
[2021-07-02 13:53] LABS: Hemoglobin A1c 6.3 % (3.8-5.6)
--- NOTE | 2021-07-02 13:57 | PCM.CONS.C ---
Assessment & Plan Assessment/Plan (1) CHF (congestive heart failure): QUALIFIERS: Heart failure type: unspecified Heart failure chronicity: unspecified Qualified Code(s): I50.9 - Heart failure, unspecified PLAN: Acute systolic heart failure. Improved. It will be reasonable to hold the amlodipine and add carvedilol 6.25 mg p.o. twice daily. Once the beta-carlin and ROSARIO inhibitor have been titrated to maximum tolerated levels, if the blood pressure is still elevated then we can add amlodipine. Continue Lasix drip for now. If the creatinine remains stable tomorrow and if the patient is able to lie down flat then we will proceed with coronary angiography to evaluate the cause for patient's severe LV dysfunction. Coronary angiography could be performed as an outpatient as well. Risks and benefits explained to the patient and patient wishes to proceed. HPI Consult Data Date of Consult: 07/02/21 HPI Narrative HPI Narrative: SARAH CARLTON, is a 51 F who presents with bilateral lower extremity swelling, shortness of breath and abdominal distention. Patient was found to be in heart failure and was started on Lasix drip. She has noticed improvement in her symptoms. 2D echo reveals an EF of 15%. Patient has been recently diagnosed with hypertension and also has diabetes, positive family history for premature coronary artery disease and is a smoker. Review of systems: All systems reviewed. All else is negative except as in HPI. [facility] Medical History Asthma Bipolar 1 disorder Diabetes HTN (hypertension) with goal to be determined Kidney disease Obesity Schizoaffective disorder Home Medications aspirin 81 mg PO DAILY@0900 11/11/16 [History Last Taken 07/01/21] lisinopril 20 mg PO DAILY@0900 11/11/16 [History Last Taken 07/01/21] metformin 500 mg PO BIDCM@0900,1700 11/11/16 [History Last Taken 07/01/21] potassium chloride [K-Dur] 20 meq PO BID@0900,2100 11/11/16 [History Last Taken 07/01/21] venlafaxine 150 mg PO DAILY@0900 11/11/16 [History Last Taken 07/01/21] albuterol sulfate 2 inh INHALATION Q4H PRN 07/01/21 [History Last Taken 06/27/21] amlodipine 5 mg PO DAILY@0900 07/01/21 [History Last Taken 07/01/21] ondansetron 4 mg PO Q6H PRN 07/01/21 [History Last Taken Unknown] oxybutynin chloride 10 mg PO DAILY@0900 07/01/21 [History Last Taken 07/01/21] Allergy/AdvReac Type Severity Reaction Status Date / Time adhesive tape Allergy Unknown Verified 11/11/16 09:40 latex Allergy Unknown Verified 11/11/16 09:40 phenobarbital Allergy Unknown Verified 11/11/16 09:40 Family History (Updated 07/01/21 @ 20:09 by Coretta Abbasi) Other Colon cancer Diabetes Heart disease Lung cancer Stomach cancer Uterine cancer Family History unable to obtain Surgical History History of cholecystectomy History of hysterectomy Social History (Updated 07/01/21 @ 20:10 by Coretta Abbasi) household members: children number of children: 3 current occupational status: disabled Smoking Status: Current every day smoker tobacco type: cigarettes alcohol intake: never substance use type: does not use Physical Exam Const alert and oriented x3 Orientation / Consciousness: awake HEENT normocephalic Eyes no scleral icterus Neck Neck Narrative: Jugular vein appears to be distended Resp normal respiratory effort Resp Narrative: Decreased breath sounds in both bases Cardio regular rate Extremity General Extremity: edema bilateral lower extremity Details: moderate Skin no rashes or lesions noted Neuro oriented x3 Psych mental status grossly normal Risk Stratification Risk Stratification Applicable: No Charges/Coding Visit Charges Inpatient E&M: 52693 Init Hosp L3 Objective Data Vital Signs: Vital Signs Temp Pulse Resp BP Pulse Ox 98.2 F 83 18 160/117 H 99 07/02/21 08:30 07/02/21 08:30 07/02/21 08:30 07/02/21 08:30 07/02/21 08:30 Oxygen Flow Rate (L/min) 2 Oxygen Delivery Method Room Air Weight: 313 lb 0.902 oz Body Mass Index (BMI) 51.2 Intake & Output: Intake and Output for Last 24 Hours 06/30/21 07/01/21 07/02/21 23:59 23:59 23:59 Intake Total 640 / 640 Output Total 4625 / 4625 Balance -3985 / -3985 Lab / Micro Data Result Diagrams: 07/02/21 05:45 07/02/21 05:45 Labs: Laboratory Results - last 24 hr 07/01/21 15:20: WBC 11.1 H, RBC 5.43 H, Hgb 14.8, Hct 47.2 H, MCV 86.9, MCH 27.3, MCHC 31.4 L, RDW Std Deviation 52.1 H, RDW Coeff of Fabrizio 16.9 H, Plt Count 300, MPV 9.0, Immature Gran % (Auto) 0.400, Neut % (Auto) 82.8 H, Lymph % (Auto) 10.3 L, King % (Auto) 5.5, Eos % (Auto) 0.5, Baso % (Auto) 0.5, Absolute Neuts (auto) 9.2 H, Absolute Lymphs (auto) 1.14, Nucleated RBC % 0 07/01/21 15:20: Sodium 139, Potassium 3.5, Chloride 102, Carbon Dioxide 30.0, Anion Gap 7, BUN 12, Creatinine 0.87, Estim Creat Clear Calc 70.39, Est GFR (MDRD) Af Amer 89, Est GFR (MDRD) Non-Af 74, BUN/Creatinine Ratio 13.8, Glucose 133 H, Calcium 8.5, Troponin I High Sens 44 07/01/21 15:20: B-Natriuretic Peptide 2946.3 H 07/01/21 19:49: POC Glucose 109 07/01/21 20:10: Troponin I High Sens 40 07/01/21 21:11: Troponin I High Sens 50 07/02/21 05:45: WBC 9.8, RBC 5.44 H, Hgb 14.6, Hct 47.6 H, MCV 87.5, MCH 26.8 L, MCHC 30.7 L, RDW Std Deviation 53.0 H, RDW Coeff of Fabrizio 16.7 H, Plt Count 296, MPV 9.1, Immature Gran % (Auto) 0.300, Neut % (Auto) 78.5 H, Lymph % (Auto) 13.1 L, King % (Auto) 7.1, Eos % (Auto) 0.6, Baso % (Auto) 0.4, Absolute Neuts (auto) 7.7, Absolute Lymphs (auto) 1.28, Nucleated RBC % 0 07/02/21 05:45: Sodium 140, Potassium 3.5, Chloride 102, Carbon Dioxide 31.0, Anion Gap 7, BUN 14, Creatinine 0.94, Estim Creat Clear Calc 67.77, Est GFR (MDRD) Af Amer 82, Est GFR (MDRD) Non-Af 68, BUN/Creatinine Ratio 15.0, Glucose 150 H, Calcium 8.5, Phosphorus 4.1, Magnesium 1.8, Triglycerides 94, Cholesterol 163, LDL Cholesterol 104, VLDL Cholesterol 19, HDL Cholesterol 40, TSH 2.45 07/02/21 05:45: Hemoglobin A1c 6.3 H 07/02/21 07:14: POC Glucose 129 H Rhythm Strip Rhythm Strip: Sinus Rhythm Rate: 86 Ectopy: None Cardiology Labs/Tests 07/01/21 15:20: WBC 11.1 H, RBC 5.43 H, Hgb 14.8, Hct 47.2 H, MCV 86.9, MCH 27.3, MCHC 31.4 L, Plt Count 300, MPV 9.0, Immature Gran % (Auto) 0.400, Neut % (Auto) 82.8 H, Lymph % (Auto) 10.3 L, King % (Auto) 5.5, Eos % (Auto) 0.5, Baso % (Auto) 0.5, Absolute Neuts (auto) 9.2 H, Nucleated RBC % 0 07/01/21 15:20: Sodium 139, Potassium 3.5, Chloride 102, Carbon Dioxide 30.0, Anion Gap 7, BUN 12, Creatinine 0.87, Est GFR (MDRD) Af Amer 89, Est GFR (MDRD) Non-Af 74, BUN/Creatinine Ratio 13.8, Glucose 133 H, Calcium 8.5 07/01/21 15:20: B-Natriuretic Peptide 2946.3 H 07/02/21 05:45: WBC 9.8, RBC 5.44 H, Hgb 14.6, Hct 47.6 H, MCV 87.5, MCH 26.8 L, MCHC 30.7 L, Plt Count 296, MPV 9.1, Immature Gran % (Auto) 0.300, Neut % (Auto) 78.5 H, Lymph % (Auto) 13.1 L, King % (Auto) 7.1, Eos % (Auto) 0.6, Baso % (Auto) 0.4, Absolute Neuts (auto) 7.7, Nucleated RBC % 0 07/02/21 05:45: Sodium 140, Potassium 3.5, Chloride 102, Carbon Dioxide 31.0, Anion Gap 7, BUN 14, Creatinine 0.94, Est GFR (MDRD) Af Amer 82, Est GFR (MDRD) Non-Af 68, BUN/Creatinine Ratio 15.0, Glucose 150 H, Calcium 8.5, Phosphorus 4.1, Magnesium 1.8, Triglycerides 94, Cholesterol 163, LDL Cholesterol 104, VLDL Cholesterol 19, HDL Cholesterol 40 07/02/21 05:45: Hemoglobin A1c 6.3 H Rhythm: EKG: ECHO: Stress Test: Cardiac Cath: PCI: CT Surgery: Holter monitor: EPS: PPM: CXR: Chest CT Scan: Radiography Diagnostic Testing: Radiology Impression Chest X-Ray 07/01/21 15:20 IMPRESSION: Findings suggestive of atelectasis/infiltrate in the right lower lobe with blunting of the right costophrenic angle. Mild cardiomegaly. Electronically Signed: Ayan Wiggins MD at 15:37 EDT , Service support , Echocardiogram 07/01/21 19:24 Interpretation Summary There is evidence of diastolic dysfunction. The left atrium is mildly enlarged. The right atrium is mildly enlarged. Mildly dilated right ventricle. Trivial mitral valve insufficiency. The estimated ejection fraction is 15 %. Ordering Physician: Valeria Macdonald Referring Physician: Sterling Carranza Performed By: Nataliia Faust, RDCS, RVT
[2021-07-02 15:46] LABS: Bedside Glucose 112 mg/dL (70-110)
[2021-07-02 16:45] LABS: Bedside Glucose 119 mg/dL (70-110)
[2021-07-02] MEDS: Nicotine Polacrilex 2 MG GUM PO (17:36)
[2021-07-02] MEDS: Atorvastatin Calcium 20 MG Tablet PO (21:38)
[2021-07-02 21:50] LABS: Bedside Glucose 105 mg/dL (70-110)
[2021-07-03] VITALS (16 sets, daily range): BP systolic 99–151; BP diastolic 58–101; PULSE 58–75; RESP 16–18; TEMP 36.3–36.7; O2SAT 92–98
--- NOTE | 2021-07-03 05:55 | EKG12_ITS ---
Test Reason : AM Blood Pressure : / mmHG Vent. Rate : 063 BPM Atrial Rate : 063 BPM P-R Int : 168 ms QRS Dur : 108 ms QT Int : 452 ms P-R-T Axes : 057 -44 004 degrees QTc Int : 462 ms Normal sinus rhythm with sinus arrhythmia Left axis deviation Poor R wave progression Nonspecific T wave abnormality Abnormal ECG Confirmed by RUSS JENSEN, MANNY ([id number]), mapping editor JEFF GLASGOW ([id number]) on 07/08/2021 9:38:11 AM Referred By: FERDINAND Confirmed By:MANNY SOLANO MD
[2021-07-03 06:46] LABS: Absolute Lymphocyte Count 0.92 X10^3/uL (0.83-4.51); Absolute Neutrophil Count 6.6 X10^3/uL (2.0-7.7); Basophil# 0.05 X10^3/uL; Basophil% 0.6 % (0-1); Eosinophil# 0.12 X10^3/uL; Eosinophils% 1.4 % (0-5); Hematocrit 43.6 % (37-47); Hemoglobin 13.6 g/dL (12.0-15.0); Lymphocyte # 0.92 X10^3/ul (0.83-4.51); Mean Corp Hgb Conc 31.2 g/dL (32-36); Mean Corpuscular Hgb 27.2 pg (27.0-32.0); Mean Corpuscular Volume 87.2 fL (81-99); Mean Platelet Vol. 9.5 fl (6.2-12.0); Monocyte# 0.72 X10^3/uL; Monocyte% 8.6 % (0-10); NRBC Flagged by Analyzer 0 % (0-5); Neutrophil # 6.56 X10^3/uL (2.7-7.7); Neutrophil % 78.3 % (47-70); Platelet Count 253 K/mm3 (150-450); RBC Distribution Width CV 16.2 % (11.6-14.6); RBC Distribution Width SD 51.7 fl (35.1-43.9); White Blood Count 8.4 K/mm3 (4.4-11.0)
[2021-07-03] MEDS: Carvedilol 6.25 MG Tablet PO (06:52)
[2021-07-03] MEDS: Aspirin E.C. 81 MG Tablet PO (06:52)
[2021-07-03] MEDS: Lisinopril 20 MG Tablet PO ×2 (06:52→20:54)
[2021-07-03] MEDS: Nystatin Powder 15gm Bottle 1 APPLIC TOPICAL ×3 (06:56→20:55)
[2021-07-03 07:00] LABS: Bedside Glucose 117 mg/dL (70-110)
[2021-07-03 07:07] LABS: International Normalized Ratio 1.2; Prothrombin Time (Protime)PT. 14.3 SECONDS (11.7-14.9)
[2021-07-03 07:12] LABS: Anion Gap 6 (5-15); BUN 14 mg/dL (7-18); BUN/Creat Ratio 17.2 RATIO (10-20); Calcium,Total 8.4 mg/dL (8.5-10.1); Chloride 94 mmol/L (98-107); Creatinine, Serum 0.82 mg/dL (0.55-1.02); EST Glomerular Filtration Rate 79 mL/min (>60); Est Glom Filt Rate - Afr Amer 96 mL/min (>60); Estimated Creatinine Clearance 77.69 ml/min; Glucose 97 mg/dL (74-106); Sodium Level 138 mmol/L (136-145)
--- NOTE | 2021-07-03 09:44 | CASEMGMT ---
According to the [facility] website, the following are in-network tertiary facilities: [facility], [place], [facility], [facility], [facility], [facility], [place], [facility], and . Tim PEREZ CM
--- NOTE | 2021-07-03 11:05 | CL.D_ITS ---
Patient Name: SARAH CARLTON Study Date: 07/03/2021 Performing: Kevyn Veliz MD Ht: 66 inches 168 cm : 1970 Wt: 293.6 lbs 133 kg Age: 51 Gender: female BSA: 2.36 PROCEDURE(S) PERFORMED RS90-HYM/COR/LV CLINICAL PROFILE AND INDICATIONS Indications: Cardiomyopathy Heart Failure: NYHA Class: 3, Newly Diagnosed: Yes, Heart Failure Type: Systolic Stress/Imaging Stress/Image Study Performed: No CAD Presentations: Other: chf CONCLUSIONS Mild non obstructive CAD as described. Severe LV dysfunction, EF is 15%. No significant or MR RECOMMENDATIONS DESCRIPTION OF PROCEDURE The patient arrived to the procedure lab. The risks and benefits of the procedure as well as a full d escription of our services here and current unavailability of surgical backup were fully explained to the patient and/or their significant other prior to the catheterization. The Timeout was completed, verifying the correct patient and procedure. The patient's procedural site was prepped and draped in the usual fashion. Local anesthetic was given subcutaneously to right radial region with Lidocaine 2% . Using a modified Seldinger technique, arterial access was obtained via the right radial artery, a 6 Fr sheath was inserted. Left Coronary Artery selective angiography was performed in multiple views u sing a 5 Fr. JL3.5 catheter. Left Ventriculography was performed in CLEANING projection using a 5 Fr. Pigt ail catheter. LV to AO pullback pressures were then recorded. Right Coronary Artery selective angiogr aphy was then performed in multiple views using a 5 Fr. JR 4 catheter.The arterial sheath was pulled and a TR Band was applied for hemostasis CORONARY ANGIOGRAPHY DOMINANCE: Right Dominant LEFT HEART ASSESSMENT Left Ventricular Ejection Fraction: by LV Gram 15 % Global Hypokinesis - Severe LEFT MAIN: No significant disease noted LEFT ANTERIOR DESCENDING ARTERY: MID LAD: 25 % Stenosis CIRCUMFLEX ARTERY: Mild luminal irregularities RIGHT CORONARY ARTERY: Mild luminal irregularities VALVE FINDINGS: No Aortic Valve Stenosis No Mitral Insufficency COMPLICATIONS No Complications PROCEDURE MEDICATIONS Fentanyl 50 mcg IV Versed 1 mg IV Versed 1 mg IV Oxygen: 2 L/min via nasal cannula Heparin given IA 07/03/2021 10:30:02 Verapamil 0.5mg, Ntg 100mcgs, 3000 units of Heparin given IA 07/03/2021 10:30:02 SUMMARY OF HEMODYNAMIC DATA Time AIR REST ECG 10:15:11 AO 125/85 (101) SA 10:33:37 LV 128/15, 22 10:38:55 LV 131/10, 23 10:39:01 LV 137/11, 23 10:39:36 LV 140/10, 26 10:39:41 LVp 143/9, 30 10:39:57 AOp 140/87 (108) 10:40:02 Signed By Kevyn Veliz MD On 07/03/2021 11:05:05 Kevyn Veliz MD
[2021-07-03] MEDS: Tolterodine Tartrate 2 MG CAP.SA PO (11:12)
[2021-07-03] MEDS: Venlafaxine XR 150 MG Capsule PO (11:12)
[2021-07-03] MEDS: Potassium Chloride Oral Tablet 20 MEQ PO (11:12)
[2021-07-03] MEDS: Nicotine Polacrilex 2 MG GUM PO (11:14)
--- NOTE | 2021-07-03 11:51 | PCM.PN.CARD ---
Subjective Subjective Shortness of breath is improved. Objective Data Vital Signs: Vital Signs Temp Pulse Resp BP Pulse Ox 97.7 F L 64 18 106/58 L 95 07/03/21 08:00 07/03/21 08:00 07/03/21 08:00 07/03/21 08:00 07/03/21 08:00 Oxygen Flow Rate (L/min) 2 Oxygen Delivery Method Room Air Weight: 293 lb 14.019 oz Body Mass Index (BMI) 51.2 Intake & Output: Intake and Output for Last 24 Hours 07/01/21 07/02/21 07/03/21 23:59 23:59 23:59 Intake Total 880 / 1000 240 / 240 Output Total 7575 / 16273 6250 / 6250 Balance -6695 / -09011 -6010 / -6010 Lab / Micro Data Result Diagrams: 07/03/21 05:30 07/03/21 05:30 Labs: Laboratory Results - last 24 hr 07/02/21 05:45: Hemoglobin A1c 6.3 H 07/02/21 11:32: POC Glucose 112 H 07/02/21 16:41: POC Glucose 119 H 07/02/21 21:34: POC Glucose 105 07/03/21 05:30: WBC 8.4, RBC 5.00, Hgb 13.6, Hct 43.6, MCV 87.2, MCH 27.2, MCHC 31.2 L, RDW Std Deviation 51.7 H, RDW Coeff of Fabrizio 16.2 H, Plt Count 253, MPV 9.5, Immature Gran % (Auto) 0.100, Neut % (Auto) 78.3 H, Lymph % (Auto) 11.0 L, [place] % (Auto) 8.6, Eos % (Auto) 1.4, Baso % (Auto) 0.6, Absolute Neuts (auto) 6.6, Absolute Lymphs (auto) 0.92, Nucleated RBC % 0 07/03/21 05:30: Sodium 138, Potassium 3.0 L, Chloride 94 L, Carbon Dioxide 38.0 H, Anion Gap 6, BUN 14, Creatinine 0.82, Estim Creat Clear Calc 77.69, Est GFR (MDRD) Af Amer 96, Est GFR (MDRD) Non-Af 79, BUN/Creatinine Ratio 17.2, Glucose 97, Calcium 8.4 L 07/03/21 05:30: PT 14.3, INR 1.2 07/03/21 06:52: POC Glucose 117 H Rhythm Strip Rhythm Strip: Sinus Rhythm Rate: 86 Ectopy: None Cardiology Labs/Tests 07/02/21 05:45: Hemoglobin A1c 6.3 H 07/03/21 05:30: WBC 8.4, RBC 5.00, Hgb 13.6, Hct 43.6, MCV 87.2, MCH 27.2, MCHC 31.2 L, Plt Count 253, MPV 9.5, Immature Gran % (Auto) 0.100, Neut % (Auto) 78.3 H, Lymph % (Auto) 11.0 L, [place] % (Auto) 8.6, Eos % (Auto) 1.4, Baso % (Auto) 0.6, Absolute Neuts (auto) 6.6, Nucleated RBC % 0 07/03/21 05:30: Sodium 138, Potassium 3.0 L, Chloride 94 L, Carbon Dioxide 38.0 H, Anion Gap 6, BUN 14, Creatinine 0.82, Est GFR (MDRD) Af Amer 96, Est GFR (MDRD) Non-Af 79, BUN/Creatinine Ratio 17.2, Glucose 97, Calcium 8.4 L 07/03/21 05:30: PT 14.3, INR 1.2 Rhythm: EKG: ECHO: Stress Test: Cardiac Cath: PCI: CT Surgery: Holter monitor: EPS: PPM: CXR: Chest CT Scan: Radiography Diagnostic Testing: Radiology Impression Echocardiogram 07/01/21 19:24 Interpretation Summary There is evidence of diastolic dysfunction. The left atrium is mildly enlarged. The right atrium is mildly enlarged. Mildly dilated right ventricle. Trivial mitral valve insufficiency. The estimated ejection fraction is 15 %. Ordering Physician: Valeria Macdonald Referring Physician: Sterling Carranza Performed By: Nataliia Faust, [place], RVT Physical Exam Const alert and oriented x3 Orientation / Consciousness: awake HEENT normocephalic Eyes no scleral icterus Resp Auscultation: diminished lung sounds bilateral upper Cardio regular rate Skin no rashes or lesions noted Psych mental status grossly normal Assessment & Plan Assessment/Plan (1) CHF (congestive heart failure): QUALIFIERS: Heart failure type: unspecified Heart failure chronicity: unspecified Qualified Code(s): I50.9 - Heart failure, unspecified PLAN: Acute systolic heart failure. Improved. Nonischemic cardiomyopathy. Continue current medications. Okay to switch from IV Lasix to Lasix 40 mg p.o. twice daily. Charges/Coding Visit Charges Inpatient E&M: 80561 Subs Hosp L2
[2021-07-03 12:00] LABS: Bedside Glucose 139 mg/dL (70-110)
[2021-07-03] MEDS: Furosemide 500 MG in Empty Viaflex 50 mL 1 EACH CONT INF (12:14)
--- NOTE | 2021-07-03 13:40 | PN.HOSP_ITS ---
Documented by User: Annette Jaime NP, CHILDBIRTH EDUCATOR-C 07/03/21 13:49 Subjective Subjective Patient seen and examined. Underwent heart cath which demonstrated nonischemic cardiomyopathy. Reports improvement in shortness of breath and generalized swelling. -24 pounds. Objective Data Objective Data Vital Signs: Vital Signs Temp Pulse Resp BP Pulse Ox 97.7 F L 59 L 18 133/84 H 94 07/03/21 08:00 07/03/21 13:07 07/03/21 13:07 07/03/21 13:07 07/03/21 13:07 Oxygen Flow Rate (L/min) 2 Oxygen Delivery Method Nasal Cannula Weight: 293 lb 14.019 oz Body Mass Index (BMI) 51.2 Intake & Output: Intake and Output for Last 24 Hours 07/01/21 07/02/21 07/03/21 23:59 23:59 23:59 Intake Total 880 / 1000 277.93 / 277.93 Output Total 7575 / 89143 8000 / 8000 Balance -6695 / -21495 -7722.07 / -7722.07 Lab / Micro Data Result Diagrams: 07/03/21 05:30 07/03/21 05:30 Labs: Laboratory Results - last 24 hr 07/02/21 05:45: Hemoglobin A1c 6.3 H 07/02/21 11:32: POC Glucose 112 H 07/02/21 16:41: POC Glucose 119 H 07/02/21 21:34: POC Glucose 105 07/03/21 05:30: WBC 8.4, RBC 5.00, Hgb 13.6, Hct 43.6, MCV 87.2, MCH 27.2, MCHC 31.2 L, RDW Std Deviation 51.7 H, RDW Coeff of Fabrizio 16.2 H, Plt Count 253, MPV 9.5, Immature Gran % (Auto) 0.100, Neut % (Auto) 78.3 H, Lymph % (Auto) 11.0 L, [place] % (Auto) 8.6, Eos % (Auto) 1.4, Baso % (Auto) 0.6, Absolute Neuts (auto) 6.6, Absolute Lymphs (auto) 0.92, Nucleated RBC % 0 07/03/21 05:30: Sodium 138, Potassium 3.0 L, Chloride 94 L, Carbon Dioxide 38.0 H, Anion Gap 6, BUN 14, Creatinine 0.82, Estim Creat Clear Calc 77.69, Est GFR (MDRD) Af Amer 96, Est GFR (MDRD) Non-Af 79, BUN/Creatinine Ratio 17.2, Glucose 97, Calcium 8.4 L 07/03/21 05:30: PT 14.3, INR 1.2 07/03/21 06:52: POC Glucose 117 H 07/03/21 11:55: POC Glucose 139 H Rhythm Strip Rhythm Strip: Sinus Rhythm Rate: 86 Ectopy: None Physical Exam Const alert, oriented x3 and no apparent distress Orientation / Consciousness: awake, oriented to person, oriented to place and oriented to time Nutritional Appearance: obese HEENT normocephalic and moist oral mucous membranes Eyes PERRL, EOMs intact bilaterally and conjunctivae normal Neck no lymphadenopathy Resp normal respiratory effort and clear to auscultation bilaterally Cardio regular rate, regular rhythm and no murmurs Peripheral Pulses: pulses 2+ throughout GI normal to inspection, nondistended, normoactive bowel sounds, non-tender and non-distended Extremity normal to inspection Extremity Narrative: Abdominal swelling. General Extremity: edema bilateral lower extremity Skin no rashes or lesions noted Lesions: no lesions Rashes: no rashes Trauma: no lacerations or abrasions Neuro CN's II-XII intact bilaterally, no focal motor deficits, no sensory deficits noted and deep tendon reflexes 2+ bilaterally Psych mental status grossly normal and affect normal Assessment & Plan Assessment/Plan (1) Heart failure with reduced ejection fraction: PLAN: 1. Acute heart failure with reduced ejection fraction/nonischemic cardiomyopathy-chest x-ray consistent with CHF. BNP 2946. Enzymes, TSH normal. Echocardiogram completed and demonstrates an EF of 15%. On Lasix drip. -24 pounds since admission. Strict I&O. Daily weight. Cardiology consulted. Underwent heart cath which showed mild CAD, nonischemic cardiomyopathy. Plan to transition to oral Lasix in a.m. Continue carvedilol, lisinopril. 2. Type 2 diabetes mellitus-Metformin on hold. Accu-Cheks with sliding scale insulin. Hemoglobin A1c 6.3%. 3. Hypertension-recently placed on amlodipine, lisinopril. Increase lisinopril to 20 mg twice daily. Initiated on carvedilol. As needed hydralazine for systolic blood pressure greater than 160. 4. SHARI-previously on CPAP however has not worn in several years. Will need repeat sleep study as outpatient and follow-up with pulmonary medicine. 5. Morbid obesity-BMI 50. Dietitian consult. 6. Schizoaffective/bipolar disorder-on venlafaxine. 7. Mild intermittent asthma-no exacerbation. As needed albuterol aerosol. 8. Tobacco dependence-encouraged cessation. DVT prophylaxis-Lovenox subcu This patient was seen by Annette Jaime NP-C under the supervision of Dr. Tesfaye. Documented by User: Dr. Doris eTsfaye DO 07/03/21 15:33 Subjective Subjective This patient was seen in conjunction with Annette Jaime NP. The following is representation my independent history and physical examination. Please see below for addendum the above. Patient reports that she is feeling much better. We discussed the amount of volume she is diuresed and she is pleased. She notes that she has ankles again. She has just returned from her cardiac catheterization and is pleased that she does not have coronary disease. We discussed the plan for continued IV drip Lasix for the next 24 hours and reevaluate where she is tomorrow. We also discussed necessary diet changes with sodium restriction and fluid restriction after discharge. We also discussed recommended tobacco cessation and follow-up for a new CPAP/BiPAP after discharge. Objective Data Lab / Micro Data Result Diagrams: 07/03/21 05:30 07/03/21 05:30 Physical Exam Const alert, oriented x3 and no apparent distress Constitutional Narrative: Super morbidly obese white female sitting up in bed, appears comfortable and nontoxic, edema has improved, has just returned from [facility] General Appearance: cooperative Orientation / Consciousness: awake, oriented to person, oriented to place and oriented to time Exam Limitations: no limitations Nutritional Appearance: morbidly obese HEENT normocephalic, head/scalp atraumatic and moist oral mucous membranes Head and Scalp: normocephalic Eyes no scleral icterus Neck full ROM General: trachea midline Resp normal respiratory effort, normal air movement, no retractions, no use of accessory muscles and clear to auscultation bilaterally Resp Narrative: Diffusely diminished but exam is limited secondary to body habitus Effort and Inspection: tachypneic Auscultation: diminished lung sounds; Negative for crackles, rales, rhonchi or wheezes Cardio regular rate, regular rhythm, S1 normal heart sound, S2 normal heart sound, no murmurs, no rub, no gallops, no clicks, no JVD and peripheral pulses 2+ t hroughout Peripheral Pulses: pulses 2+ throughout GI normal to inspection, nondistended, normoactive bowel sounds, soft to palpation, non-tender and non-distended Extremity normal to inspection and normal capillary refill Extremity Narrative: Abdominal swelling, 1+ bilateral lower extremity pitting edema that has significantly improved since admission, no cyanosis or clubbing, less erythema General Extremity: edema bilateral lower extremity Details: moderate and no tenderness to palpation of joints or extremities Peripheral Pulses: Yes pulses 2+ throughout Skin General Skin Exam: no breakdown and turgor normal Lesions: no lesions Rashes: no rashes Trauma: no lacerations or abrasions Neuro oriented x3, moves all extremities and deep tendon reflexes 2+ bilaterally Sensorium / Orientation: awake and alert Speech: speech normal Motor Exam: Negative for general weakness Psych mental status grossly normal and cooperative Attitude: bizarre Activity / Motor Behavior: fidgetting and restless Speech: excessive Mood & Affect: elevated mood Thought Content: delusion(s) Delusional Thought Content Details: Positive for other (Patient states that she believes there was an alien in her bowing) Assessment & Plan Assessment/Plan (1) Heart failure with reduced ejection fraction: (2) Secondary right ventricular dilation: (3) Peripheral edema: PLAN: Assessment: HFrEF-decompensated systolic Anasarca RV dysfunction-suspect secondary to COPD/SHARI/OHS [id number] Hypokalemia Hypertension SHARI COPD Morbid obesity Urinary incontinence Schizoaffective disorder Bipolar disorder Plan: -Echocardiogram done today shows an EF of 15% which is a new diagnosis for her as well as dilated right ventricle and biatrial enlargement -Left heart cath on 07/03/2021 revealed mild nonobstructive coronary artery disease with severe LV dysfunction and no significant left ear or MR -Patient will need follow-up with pulmonary in [place] repeat sleep study as she has been noncompliant with her CPAP as of recently -Potassium replaced--> recheck a.m. lab -Increase carvedilol 12.5 mg twice daily -Continue lisinopril -Add Aldactone as able -Continue aspirin -Continue home diabetes regimen--> A1c on admission was 6.3 with a normal creatinine -Continue Lasix drip--> has diuresed over 11 L in the last 24 hours -Anticipate conversion to oral Lasix tomorrow -Continue daily weights strict I's and O's with fluid and sodium restriction -Discussed today with patient extensively on needed compliance after discharge to maintain euvolemia and remain out of the hospital -We will need extremely close follow-up--> referrals for new PCP given as efren banerjee states she is not returning to her previous primary care physician, will also need cardiology follow-up -Repeat echocardiogram in 6 to 8 weeks with medication compliance to reevaluate LV and need for ICD Charges/Coding Visit Charges Inpatient E&M: 73805 Subs Hosp L2
--- NOTE | 2021-07-03 15:09 | NURSING ---
Read and reviewed SN documentation. Reviewed plan of care with SN
--- NOTE | 2021-07-03 15:25 | CASEMGMT ---
Addendum entered by Cinthya Siddiqui 07/03/21 15:40: Call from [facility] and they are unable to supply SN at this time. Referral faxed to [facility]. Call to [facility] to and they are not accepting any [facility]. [facility] and they are accepting [facility] and ask referral to be faxed. Referral faxed. Tim PEREZ CM Original Note: Pt states no preference for C and was previously provided a list of C providers including quality and resource use data and consistent with the patient?s preferred geographic region, medical needs, and insurance network. Referral faxed to [facility]. CM to follow. Tim PEREZ CM
[2021-07-03 16:45] LABS: Bedside Glucose 123 mg/dL (70-110)
--- NOTE | 2021-07-03 16:45 | CASEMGMT ---
Message left with [facility] regarding referral faxed earlier. CM to follow. Tim PEREZ CM
[2021-07-03] MEDS: Potassium Chloride Oral Tablet 20 MEQ 40 MEQ PO (17:03)
[2021-07-03] MEDS: Atorvastatin Calcium 20 MG Tablet PO (20:54)
[2021-07-03] MEDS: Carvedilol 12.5 MG Tablet PO (20:54)
[2021-07-03 21:16] LABS: Bedside Glucose 116 mg/dL (70-110)
[2021-07-04] VITALS (9 sets, daily range): BP systolic 106–136; BP diastolic 75–93; PULSE 53–110; RESP 16–18; TEMP 36.1–36.9; O2SAT 82–99
[2021-07-04] MEDS: Nystatin Powder 15gm Bottle 1 APPLIC TOPICAL ×3 (05:36→21:08)
[2021-07-04 06:30] LABS: Bedside Glucose 107 mg/dL (70-110)
[2021-07-04 07:19] LABS: Anion Gap 6 (5-15); BUN 13 mg/dL (7-18); BUN/Creat Ratio 15.4 RATIO (10-20); Calcium,Total 8.4 mg/dL (8.5-10.1); Chloride 90 mmol/L (98-107); Creatinine, Serum 0.84 mg/dL (0.55-1.02); EST Glomerular Filtration Rate 76 mL/min (>60); Est Glom Filt Rate - Afr Amer 92 mL/min (>60); Estimated Creatinine Clearance 75.84 ml/min; Glucose 102 mg/dL (74-106); Potassium 3.5 mmol/L (3.5-5.1); Sodium Level 136 mmol/L (136-145)
--- NOTE | 2021-07-04 08:37 | CPS ---
nasal cannula out of pt's nose. cannula placed back in and saturation to 90%
[2021-07-04] MEDS: Aspirin E.C. 81 MG Tablet PO (08:41)
[2021-07-04] MEDS: Tolterodine Tartrate 2 MG CAP.SA PO (08:41)
[2021-07-04] MEDS: Furosemide 80 MG Tablet PO ×2 (08:41→17:27)
[2021-07-04] MEDS: Potassium Chloride Oral Tablet 20 MEQ 40 MEQ PO ×2 (08:41→17:27)
[2021-07-04] MEDS: Enoxaparin 40 MG/0.4 ML Syringe SC (08:42)
[2021-07-04] MEDS: Venlafaxine XR 150 MG Capsule PO (08:42)
[2021-07-04] MEDS: Carvedilol 6.25 MG Tablet PO ×2 (08:51→21:08)
--- NOTE | 2021-07-04 10:35 | PN.HOSP_ITS ---
Documented by User: Annette Jaime LABORATORY ANIMAL CARETAKER, LABORATORY ANIMAL CARETAKER-C 07/04/21 10:42 Subjective Subjective Patient seen and examined. Reports significant improvement in lower extremity and abdominal swelling. Denies further shortness of breath. -38 pounds since admission. Extensive discussion with patient regarding diagnosis and plan of care. Objective Data Objective Data Vital Signs: Vital Signs Temp Pulse Resp BP Pulse Ox 97.7 F L 58 L 18 106/75 94 07/04/21 08:40 07/04/21 08:40 07/04/21 08:40 07/04/21 08:40 07/04/21 08:40 Oxygen Flow Rate (L/min) 2 Oxygen Delivery Method Room Air Weight: 279 lb 8.738 oz Body Mass Index (BMI) 51.2 Intake & Output: Intake and Output for Last 24 Hours 07/02/21 07/03/21 07/04/21 23:59 23:59 23:59 Intake Total 880 / 1000 517.93 / 967.93 650 / 650 Output Total 7575 / 14630 9550 / 09537 4950 / 4950 Balance -6695 / -43681 -9032.07 / -42766.07 -4300 / -4300 Lab / Micro Data Result Diagrams: 07/03/21 05:30 07/04/21 06:10 Labs: Laboratory Results - last 24 hr 07/03/21 11:55: POC Glucose 139 H 07/03/21 16:34: POC Glucose 123 H 07/03/21 20:54: POC Glucose 116 H 07/04/21 06:10: Sodium 136, Potassium 3.5, Chloride 90 L, Carbon Dioxide 40.0 H, Anion Gap 6, BUN 13, Creatinine 0.84, Estim Creat Clear Calc 75.84, Est GFR (MDRD) Af Amer 92, Est GFR (MDRD) Non-Af 76, BUN/Creatinine Ratio 15.4, Glucose 102, Calcium 8.4 L 07/04/21 06:23: POC Glucose 107 Rhythm Strip Rhythm Strip: Sinus Rhythm Rate: 86 Ectopy: None Physical Exam Const alert, oriented x3 and no apparent distress Orientation / Consciousness: awake, oriented to person, oriented to place and oriented to time Nutritional Appearance: obese HEENT normocephalic and moist oral mucous membranes Eyes PERRL, EOMs intact bilaterally and conjunctivae normal Neck no lymphadenopathy Resp clear to auscultation bilaterally Auscultation: diminished lung sounds Cardio regular rate, regular rhythm and no murmurs Peripheral Pulses: pulses 2+ throughout GI normal to inspection, nondistended, normoactive bowel sounds, non-tender and non-distended GI Narrative: Abdominal swelling improved Extremity normal to inspection General Extremity: edema bilateral lower extremity Details: mild Skin no rashes or lesions noted Lesions: no lesions Rashes: no rashes Trauma: no lacerations or abrasions Neuro CN's II-XII intact bilaterally, no focal motor deficits, no sensory deficits noted and deep tendon reflexes 2+ bilaterally Psych mental status grossly normal and affect normal Assessment & Plan Assessment/Plan (1) Heart failure with reduced ejection fraction: PLAN: 1. Acute heart failure with reduced ejection fraction/nonischemic cardiomyopathy-chest x-ray consistent with CHF. BNP 2946. Enzymes, TSH normal. Echocardiogram completed and demonstrates an EF of 15%. On Lasix drip. -38 pounds since admission. Strict I&O. Daily weight. Cardiology consulted. Underwent heart cath which showed mild CAD, nonischemic cardiomyopathy. Transition to oral Lasix 80 mg twice daily. Continue carvedilol, lisinopril. 2. Type 2 diabetes mellitus-Metformin on hold. Accu-Cheks with sliding scale insulin. Hemoglobin A1c 6.3%. 3. Hypertension-recently placed on amlodipine, lisinopril. Amlodipine discontinued. Increase lisinopril to 20 mg twice daily. Initiated on carvedilol. As needed hydralazine for systolic blood pressure greater than 160. 4. SHARI-previously on CPAP however has not worn in several years. Will need repe at sleep study as outpatient and follow-up with pulmonary medicine. 5. Morbid obesity-BMI 50. Dietitian consult. 6. Schizoaffective/bipolar disorder-on venlafaxine. 7. Mild intermittent asthma-no exacerbation. As needed albuterol aerosol. 8. Tobacco dependence-encouraged cessation. DVT prophylaxis-Lovenox subcu Discharge plan: Plan for discharge 07/05/2021 if patient remains stable. This patient was seen by ZAIRA Banuelos under the supervision of Dr. Tesfaye. Documented by User: Dr. Doris Tesfaye DO 07/04/21 14:24 Subjective Subjective This patient was seen in conjunction with Annette Jaime NP. The following is representation my independent history and physical examination. Please see below for addendum the above. Patient is impressed with the amount of fluid she is lost. She states her abdominal girth size has improved and her legs are almost back to normal. We discussed what she will have to do in order to try to improve her heart function as an outpatient and discussed likely reevaluation with an echocardiogram in 6 to 8 weeks after she has been on goal-directed therapy for reevaluation of her ejection fraction. We did also discuss the potential need for an ICD if her heart muscle stays weak. She voiced understanding. Objective Data Lab / Micro Data Result Diagrams: 07/03/21 05:30 07/04/21 06:10 Physical Exam Const alert, oriented x3 and no apparent distress Constitutional Narrative: Super morbidly obese white female sitting up in a c hair at the bedside watching a movie on her iPhone, nontoxic and appears comfortable General Appearance: cooperative Orientation / Consciousness: awake, oriented to person, oriented to place and oriented to time Exam Limitations: no limitations Nutritional Appearance: morbidly obese HEENT normocephalic, head/scalp atraumatic and moist oral mucous membranes Head and Scalp: normocephalic Eyes no scleral icterus Neck full ROM General: trachea midline Resp normal air movement, no retractions, no use of accessory muscles and clear to auscultation bilaterally Resp Narrative: Diffusely diminished but exam is limited secondary to body habitus Effort and Inspection: tachypneic Auscultation: diminished lung sounds; Negative for crackles, rales, rhonchi or wheezes Cardio regular rate, regular rhythm, S1 normal heart sound, S2 normal heart sound, no murmurs, no rub, no gallops, no clicks, no JVD and peripheral pulses 2+ throughout Peripheral Pulses: pulses 2+ throughout GI normal to inspection, nondistended, normoactive bowel sounds, soft to palpation, non-tender and non-distended GI Narrative: Abdominal swelling improved Extremity normal to inspection and normal capillary refill Extremity Narrative: Abdominal swelling, trace bilateral lower extremity pitting edema, no cyanosis or clubbing, erythema resolved General Extremity: edema bilateral lower extremity Details: mild and no tenderness to palpation of joints or extremities Peripheral Pulses: Yes pulses 2+ throughout Skin General Skin Exam: no breakdown and turgor normal Lesions: no lesions Rashes: no rashes Trauma: no lacerations or abrasions Neuro oriented x3, CN's II-XII intact bilaterally, moves all extremities, no focal motor deficits and deep tendon reflexes 2+ bilaterally Sensorium / Orientation: awake and alert Speech: speech normal Motor Exam: Negative for general weakness Psych mental status grossly normal and cooperative Attitude: bizarre Activity / Motor Behavior: fidgetting and restless Speech: excessive Mood & Affect: elevated mood Thought Content: delusion(s) Delusional Thought Content Details: Positive for other (Patient states that she believes there was an alien in her bowing) Assessment & Plan Assessment/Plan (1) Heart failure with reduced ejection fraction: (2) Peripheral edema: PLAN: Assessment: HFrEF-decompensated systolic Anasarca RV dysfunction-suspect secondary to COPD/SHARI/OHS Contraction alkalosis [id number] Hypokalemia-resolved Hypertension SHARI COPD Morbid obesity Urinary incontinence Schizoaffective disorder Bipolar disorder Plan: -Echocardiogram done today shows an EF of 15% which is a new diagnosis for her as well as dilated right ventricle and biatrial enlargement -Left heart cath on 07/03/2021 revealed mild nonobstructive coronary artery disease with severe LV dysfunction and no significant left ear or MR -Patient will need follow-up with pulmonary in [place] repeat sleep study as she has been noncompliant with her CPAP as of recently -Potassium replaced--> recheck a.m. lab -Decrease carvedilol to 6.25 mg/day secondary to soft blood pressures and bradycardia -Continue lisinopril -Add Aldactone as able -Continue aspirin -Continue home diabetes regimen--> A1c on admission was 6.3 with a normal creatinine -Stop Lasix drip and convert to 80 mg p.o. Lasix twice daily -Continue daily weights strict I's and O's with fluid and sodium restriction -We will need extremely close follow-up--> referrals for new PCP given as patient states she is not returning to her previous primary care physician, will also need cardiology follow-up -Repeat echocardiogram in 6 to 8 weeks with medication compliance to reevaluate LV and need for ICD -We will plan for discharge tomorrow if patient remains stable -Weight is down almost 20 kg since admission Charges/Coding Visit Charges Inpatient E&M: 98327 Subs Hosp L2
[2021-07-04 12:11] LABS: Bedside Glucose 131 mg/dL (70-110)
[2021-07-04] MEDS: Nicotine Polacrilex 2 MG GUM PO (14:44)
[2021-07-04 17:30] LABS: Bedside Glucose 93 mg/dL (70-110)
[2021-07-04] MEDS: Atorvastatin Calcium 20 MG Tablet PO (21:07)
[2021-07-04] MEDS: Lisinopril 20 MG Tablet PO (21:09)
[2021-07-04 22:40] LABS: Bedside Glucose 107 mg/dL (70-110)
[2021-07-05 02:49] VITALS: BP 99/73; PULSE 74; RESP 16; TEMP 36.5; O2SAT 93
[2021-07-05 03:11] VITALS: PULSE 62
[2021-07-05] MEDS: Nystatin Powder 15gm Bottle 1 APPLIC TOPICAL (04:55)
[2021-07-05 05:54] LABS: Anion Gap 4 (5-15); BUN 19 mg/dL (7-18); BUN/Creat Ratio 20.6 RATIO (10-20); Calcium,Total 8.6 mg/dL (8.5-10.1); Chloride 89 mmol/L (98-107); Creatinine, Serum 0.92 mg/dL (0.55-1.02); EST Glomerular Filtration Rate 69 mL/min (>60); Est Glom Filt Rate - Afr Amer 83 mL/min (>60); Estimated Creatinine Clearance 69.25 ml/min; Glucose 129 mg/dL (74-106); Sodium Level 133 mmol/L (136-145)
[2021-07-05 06:56] VITALS: PULSE 71
[2021-07-05 07:06] LABS: Bedside Glucose 120 mg/dL (70-110)
[2021-07-05 07:24] VITALS: O2SAT 96
[2021-07-05] MEDS: Furosemide 20 MG Tablet 60 MG PO (08:31)
[2021-07-05] MEDS: Venlafaxine XR 150 MG Capsule PO (08:32)
[2021-07-05] MEDS: Tolterodine Tartrate 2 MG CAP.SA PO (08:32)
[2021-07-05] MEDS: Potassium Chloride Oral Tablet 20 MEQ 40 MEQ PO (08:32)
[2021-07-05] MEDS: Aspirin E.C. 81 MG Tablet PO (08:32)
[2021-07-05] MEDS: Lisinopril 20 MG Tablet PO (08:32)
[2021-07-05] MEDS: Carvedilol 6.25 MG Tablet PO (08:33)
[2021-07-05] MEDS: Enoxaparin 40 MG/0.4 ML Syringe SC (08:33)
[2021-07-05 08:36] VITALS: BP 126/79; PULSE 65; RESP 18; TEMP 36.5; O2SAT 97
--- NOTE | 2021-07-05 09:35 | PCM.DC ---
Discharge Instructions Diet Discharge Diet: Low fat / Low cholesterol, 8 Cup Fluid Restriction and 2000 mg Sodium Diet Activity Discharge Activity: Return to Normal Activity Additional Activity Instructions:: Weigh yourself daily, if you gain more than 2 pounds in 1 day or 5 pounds in 1 week, notify cardiology and/or PCP. Dressing / Incision Call your doctor if you observe: Shortness of breath, Dizziness and Chest pain Follow Up Care Test Results: Test results from this visit will be discussed in further detail at your follow-up appointment, if applicable. Discharge Plan Admission Admit Date/Time: 07/01/21 18:08 Primary Reason for Your Visit: Heart failure Attending Provider: Doris Tesfaye Primary Care Provider: Sterling Carranza Consulting Providers: Evon Veliz Instructions Additional Instructions / Restrictions: You will need repeat BMP in 1 week. Discharge Orders/Prescriptions Prescriptions: New carvedilol 6.25 mg Tablet 6.25 mg PO BID Qty: 60 RF: 0 nicotine (polacrilex) 2 mg Gum 2 mg PO Q2H PRN PRN (Reason: Nicotine Craving) Qty: 60 RF: 0 lisinopril 20 mg Tablet 20 mg PO BID Qty: 60 RF: 0 spironolactone 25 mg Tablet 25 mg PO DAILY Qty: 30 RF: 0 furosemide [Lasix] 20 mg tablet 60 mg PO BID 30 Days Qty: 180 RF: 0 Continued metformin 500 MG tablet 500 mg PO BIDCM@0900,1700 RF: 0 aspirin 81 MG tablet 81 mg PO DAILY@0900 RF: 0 venlafaxine 150 MG tablet extended release 24hr 150 mg PO DAILY@0900 RF: 0 potassium chloride [Klor-Con M20] 20 MEQ tablet 20 meq PO BID@0900,2100 RF: 0 oxybutynin chloride 10 mg Tablet Extended Release 24hr 10 mg PO DAILY@0900 RF: 0 albuterol sulfate 90 mcg/actuation HFA aerosol inhaler 2 inh INHALATION Q4H PRN (Reason: sob) RF: 0 ondansetron 4 mg tablet,disintegrating 4 mg PO Q6H PRN (Reason: Nausea) RF: 0 Discontinued lisinopril 20 MG tablet 20 mg PO DAILY@0900 RF: 0 amlodipine 5 mg Tablet 5 mg PO DAILY@0900 RF: 0 Referrals / Follow Up: Matthew Stroud MD [STAFF PHYSICIAN] - See Referral Note (Call to establish for sleep study/SHARI follow up. ) Sterling Carranza DO [Primary Care Provider] - Cem Connor DO [STAFF PHYSICIAN] - In 1 Week William Martínez GRADES 1 THRU 5 TEACHER, GRADES 1 THRU 5 TEACHER-C [Nurse Practitioner] - Within 2 Weeks (Cardiology, see GRADES 1 THRU 5 TEACHER/PA in two weeks) Disposition Disposition (needs filled in before D/C Order can be placed): Home Health Service
--- NOTE | 2021-07-05 10:12 | DS.PCM_ITS ---
Documented by User: Annette Jaime NP, MANAGER [employer] 07/05/21 10:18 Providers Date of Admission: 07/01/21 Date of Discharge: 07/05/21 Primary Care Physician: Dr. Sterling Carranza, Consultations 07/02/21 13:06 Consult: Cardiology Routine Consulting Provider: Evon Veliz Reason for Consult: Heart failure, EF 15% EMERGENT Consult: No MD Notified: Yes Date Notified: 07/02/21 Time Notified: 13:06 Method of Notification: Text Reason For Visit: NEW ONSET CHF / ANASARCA Diagnosis Discharge Diagnosis (1) Heart failure with reduced ejection fraction: Status: Acute Code(s): I50.20 - Unspecified systolic (congestive) heart failure (2) Peripheral edema: Status: Acute Code(s): R60.9 - Edema, unspecified Medications at Discharge Home Medications aspirin 81 mg PO DAILY@0900 11/11/16 metformin 500 mg PO BIDCM@0900,1700 11/11/16 potassium chloride [Klor-Con M20] 20 meq PO BID@0900,2100 11/11/16 venlafaxine 150 mg PO DAILY@0900 11/11/16 albuterol sulfate 2 inh INHALATION Q4H PRN 07/01/21 ondansetron 4 mg PO Q6H PRN 07/01/21 oxybutynin chloride 10 mg PO DAILY@0900 07/01/21 carvedilol 6.25 mg PO BID #60 tab 07/05/21 furosemide [Lasix] 60 mg PO BID 30 Days #180 tab 07/05/21 lisinopril 20 mg PO BID #60 tab 07/05/21 nicotine (polacrilex) 2 mg PO Q2H PRN PRN #60 ea 07/05/21 spironolactone 25 mg PO DAILY #30 tab 07/05/21 Hospital Course Operations None Procedures 2-D Echocardiogram and Cardiac catheterization Summary of Care Provided Minutes Spent on Discharge: 35 Hospital Course: Patient is a 51-year-old female admitted 07/01/2021 due to generalized swelling and shortness of breath. 1. Acute heart failure with reduced ejection fraction/nonischemic cardiomyopathy-chest x-ray consistent with CHF. BNP 2946. Enzymes, TSH normal. Echocardiogram completed and demonstrates an EF of 15%. Lasix drip during admission. -46 pounds since admission. Cardiology consulted. Underwent heart cath which showed mild CAD, nonischemic cardiomyopathy. Transition to oral Lasix 60 mg twice daily. Continue carvedilol, lisinopril, spironolactone. Instructed on fluid and sodium restriction and daily weights. Follow-up with PCP in 1 week. Follow-up with cardiology in 2 weeks. Patient will need repeat BMP in 1 week. Home health at discharge. 2. Type 2 diabetes mellitus-Hemoglobin A1c 6.3%. Continue Metformin. 3. Hypertension-recently placed on amlodipine, lisinopril. Amlodipine discontinued. Increase lisinopril to 20 mg twice daily. Initiated on carvedilol. Blood pressure significantly improved. 4. SHARI-previously on CPAP however has not worn in several years. Will need repeat sleep study as outpatient and follow-up with pulmonary medicine. Referred to pulmonary medicine at discharge. 5. Morbid obesity-BMI 50. Dietitian consulted. Recommend diet and lifestyle modifications. 6. Schizoaffective/bipolar disorder-on venlafaxine. 7. Mild intermittent asthma-no exacerbation. As needed albuterol inhaler. 8. Tobacco dependence-encouraged cessation. Requested nicotine gum at DC, rx given. Physical Exam Const alert, oriented x3 and no apparent distress Orientation / Consciousness: awake, oriented to person, oriented to place and oriented to time Nutritional Appearance: obese HEENT normocephalic and moist oral mucous membranes Eyes PERRL, EOMs intact bilaterally and conjunctivae normal Neck no lymphadenopathy Resp clear to auscultation bilaterally Auscultation: diminished lung sounds Cardio regular rate, regular rhythm and no murmurs Peripheral Pulses: pulses 2+ throughout GI normal to inspection, nondistended, normoactive bowel sounds, non-tender and non-distended GI Narrative: Abdominal swelling improved Extremity normal to inspection General Extremity: edema bilateral lower extremity Details: mild Skin no rashes or lesions noted Lesions: no lesions Rashes: no rashes Trauma: no lacerations or abrasions Neuro CN's II-XII intact bilaterally, no focal motor deficits, no sensory deficits noted and deep tendon reflexes 2+ bilaterally Psych mental status grossly normal and affect normal Patient seen and examined prior to discharge. Physical assessment as noted above. Patient is stable for discharge with follow up recommendations as noted above. This patient was seen by ZAIRA Banuelos under the supervision of Dr. Tesfaye. Weight / BMI Weight Weight: 271 lb 2.697 oz Body Mass Index (BMI) 51.2 ABG / Lab / Microbiology Data Result Diagrams: 07/03/21 05:30 07/05/21 04:51 Laboratory: Laboratory Results - last 24 hr 07/04/21 12:06: POC Glucose 131 H 07/04/21 17:24: POC Glucose 93 07/04/21 21:05: POC Glucose 107 07/05/21 04:51: Sodium 133 L, Potassium 4.0, Chloride 89 L, Carbon Dioxide 40.0 H, Anion Gap 4 L, BUN 19 H, Creatinine 0.92, Estim Creat Clear Calc 69.25, Est GFR (MDRD) Af Amer 83, Est GFR (MDRD) Non-Af 69, BUN/Creatinine Ratio 20.6 H, Glucose 129 H, Calcium 8.6 07/05/21 07:03: POC Glucose 120 H D/C Instructions Discharge Diet: Low fat / Low cholesterol, 8 Cup Fluid Restriction and 2000 mg Sodium Diet Additional Activity Instructions: Weigh yourself daily, if you gain more than 2 pounds in 1 day or 5 pounds in 1 week, notify cardiology and/or PCP. Call your doctor if you observe: Shortness of breath, Dizziness and Chest pain Meaningful Use Info Meaningful Use Diagnoses (Choose all that apply): CHF CHF ROSARIO/ARB ordered at discharge?: Yes Documented LVEF (%): 15 Discharge Plan Admission Admit Date/Time: 07/01/21 18:08 Primary Reason for Your Visit: Heart failure Attending Provider: Doris Tesfaye Primary Care Provider: Sterling Carranza Consulting Providers: Evon Veliz Instructions Additional Instructions / Restrictions: You will need repeat BMP in 1 week. Discharge Orders/Prescriptions Prescriptions: New carvedilol 6.25 mg Tablet 6.25 mg PO BID Qty: 60 RF: 0 nicotine (polacrilex) 2 mg Gum 2 mg PO Q2H PRN PRN (Reason: Nicotine Craving) Qty: 60 RF: 0 lisinopril 20 mg Tablet 20 mg PO BID Qty: 60 RF: 0 spironolactone 25 mg Tablet 25 mg PO DAILY Qty: 30 RF: 0 furosemide [Lasix] 20 mg tablet 60 mg PO BID 30 Days Qty: 180 RF: 0 Continued metformin 500 MG tablet 500 mg PO BIDCM@0900,1700 RF: 0 aspirin 81 MG tablet 81 mg PO DAILY@0900 RF: 0 venlafaxine 150 MG tablet extended release 24hr 150 mg PO DAILY@0900 RF: 0 potassium chloride [Klor-Con M20] 20 MEQ tablet 20 meq PO BID@0900,2100 RF: 0 oxybutynin chloride 10 mg Tablet Extended Release 24hr 10 mg PO DAILY@0900 RF: 0 albuterol sulfate 90 mcg/actuation HFA aerosol inhaler 2 inh INHALATION Q4H PRN (Reason: sob) RF: 0 ondansetron 4 mg tablet,disintegrating 4 mg PO Q6H PRN (Reason: Nausea) RF: 0 Discontinued lisinopril 20 MG tablet 20 mg PO DAILY@0900 RF: 0 amlodipine 5 mg Tablet 5 mg PO DAILY@0900 RF: 0 Referrals / Follow Up: Matthew Stroud MD [STAFF PHYSICIAN] - See Referral Note (Call to establish for sleep study/SHARI follow up. ) Sterling Carranza DO [Primary Care Provider] - Cem Connor DO [STAFF PHYSICIAN] - In 1 Week William Martínez NP, MANAGER [employer] SALES-C [Nurse Practitioner] - Within 2 Weeks (Cardiology, see MANAGER FIELD SALES/PA in two weeks) Disposition Disposition (needs filled in before D/C Order can be placed): Home Health Service Documented by User: Dr. Doris Tesfaye DO 07/05/21 12:39 Providers Date of Admission: 07/01/21 Reason For Visit: NEW ONSET CHF / ANASARCA Medications at Discharge Home Medications aspirin 81 mg PO DAILY@0900 11/11/16 metformin 500 mg PO BIDCM@0900,1700 11/11/16 potassium chloride [Klor-Con M20] 20 meq PO BID@0900,2100 11/11/16 venlafaxine 150 mg PO DAILY@0900 11/11/16 albuterol sulfate 2 inh INHALATION Q4H PRN 07/01/21 ondansetron 4 mg PO Q6H PRN 07/01/21 oxybutynin chloride 10 mg PO DAILY@0900 07/01/21 carvedilol 6.25 mg PO BID #60 tab 07/05/21 furosemide [Lasix] 60 mg PO BID 30 Days #180 tab 07/05/21 lisinopril 20 mg PO BID #60 tab 07/05/21 nicotine (polacrilex) 2 mg PO Q2H PRN PRN #60 ea 07/05/21 spironolactone 25 mg PO DAILY #30 tab 07/05/21 Hospital Course Procedures 2-D Echocardiogram and Cardiac catheterization Summary of Care Provided Minutes Spent on Discharge: 45 Hospital Course: This patient was seen in conjunction with Annette Jaime NP. Please see below for any addendum the above. Sayda Ortega is a 51-year-old white female who presented to the emergency department at [facility] on 07/01/2021 with a chief complaint of anasarca. The patient reported increased abdominal swelling and bilateral lower extremity edema. The patient denied a history of heart failure but was told she recently had hypertension and was placed on antihypertensives. She denied any fevers, chills, cough, chest pain, nausea, or vomiting but did complain of some mild shortness of breath. She noted that she specifically was short of breath with lying flat. She has a history of SHARI and had been noncompliant with her CPAP as she no longer had a machine. She was admitted to PCU and placed on a Lasix drip. An echocardiogram was done on 07/01/2021 and showed an ejection fraction of 15%, mild biatrial enlargement, mildly dilated ri ght ventricle and mild mitral valve insufficiency. She had no known history of heart failure. Given her new low ejection fraction she was taken to the [facility] for a left heart cath on 07/03/2021 which showed severe global hypokinesis and mild nonobstructive CAD. She had no significant valvular disease noted. Given her depressed EF she was placed on Coreg, her lisinopril was titrated, and Aldactone was initiated. She diuresed over 40 pounds of fluid during her hospitalization with admitting weight being 144 kg and discharge weight being 123 kg. She was converted to p.o. Lasix on 07/04/2021 at 80 mg twice daily with down titration of her dose on 1023 2020 to 60 mg twice daily secondary to a mild rise in her BUN and mild hyponatremia with a sodium of 133. During her hospitalization we discussed the importance of tobacco cessation, daily weights at home with instructions on what to do with weight gain, fluid restriction to 1500 cc daily, salt restriction to 2 g daily, and having her sleep apnea treated. She was instructed to follow-up with cardiology as directed, pulmonology referral to Dr. Stroud was given for retitration of her CPAP versus BiPAP,, and she pick a new primary care physician as she was not pleased with her previous primary care physician and was referred to see him in the next week if able. Home health care is to be set up and this will be initiated tomorrow. A BMP will be drawn in 1 week to reevaluate her sodium and her creatinine. She was instructed to call either her PCP or cardiology office if she had a weight gain of more than 2 to 3 pounds in a 24-hour. To receive further instructions. I did discuss with her during her hospitalization that there may be a need for a defibrillator if her cardiac function does not improve despite goal-directed medical therapy and she voiced understanding to this. She seemed to understand the gravity of taking care of her issues and being compliant with her medications. She was discharged home in stable condition on 07/05/2021 and home health care again will be arranged tomorrow. Discharge diagnoses: Heart failure with reduced ejection fraction-systolic/compensated RV dysfunction Anasarca Hypertension SHARI OHS COPD DM-2 controlled Hypokalemia-resolved Morbid obesity Urinary incontinence Schizoaffective order Bipolar disorder Physical Exam Const alert, oriented x3 and no apparent distress Constitutional Narrative: Super morbidly obese white female sitting up in a chair at the bedside watching a movie on her iPhone, nontoxic and appears comfortable General Appearance: cooperative, comfortable, well kempt and well developed Orientation / Consciousness: awake, oriented to person, oriented to place and oriented to time Exam Limitations: no limitations Nutritional Appearance: morbidly obese HEENT normocephalic, head/scalp atraumatic, hearing grossly normal bilaterally and moist oral mucous membranes Eyes PERRL, EOMs intact bilaterally, conjunctivae normal and no scleral icterus Eyes Narrative: No scleral icterus Neck full ROM and no carotid bruits General: trachea midline Resp normal air movement, no retractions, no use of accessory muscles and clear to auscultation bilaterally Resp Narrative: Diffusely diminished but exam is limited secondary to body habitus Effort and Inspection: tachypneic Auscultation: diminished lung sounds; Negative for crackles, rales, rhonchi or wheezes Cardio regular rate, regular rhythm, S1 normal heart sound, S2 normal heart sound, no murmurs, no rub, no gallops, no clicks, no JVD and peripheral pulses 2+ throughout Peripheral Pulses: pulses 2+ throughout GI normal to inspection, nondistended, normoactive bowel sounds, soft to palpation, non-tender and non-distended GI Narrative: Patient with significant pannus Extremity normal to inspection and normal capillary refill Extremity Narrative: Abdominal swelling, trace bilateral lower extremity pitting edema, no cyanosis or clubbing, erythema resolved General Extremity: edema bilateral lower extremity Details: mild and no tender ness to palpation of joints or extremities Skin no rashes or lesions noted, no wounds, skin turgor normal, no jaundice, no petechiae and no mottling Skin Narrative: Left eyebrow piercing General Skin Exam: no breakdown and turgor normal Lesions: no lesions Rashes: no rashes Trauma: no lacerations or abrasions Neuro oriented x3, CN's II-XII intact bilaterally, moves all extremities, no focal motor deficits and deep tendon reflexes 2+ bilaterally Sensorium / Orientation: awake and alert Speech: speech normal Motor Exam: Negative for general weakness Psych mental status grossly normal, cooperative and affect normal Psych Narrative: Very pleasant Attitude: bizarre Activity / Motor Behavior: fidgetting and restless Speech: excessive Mood & Affect: elevated mood Thought Content: delusion(s) Delusional Thought Content Details: Positive for other (Patient states that she believes there was an alien in her bowing) ABG / Lab / Microbiology Data Result Diagrams: 07/03/21 05:30 07/05/21 04:51 Discharge Plan Admission Admit Date/Time: 07/01/21 18:08 Primary Reason for Your Visit: Heart failure Attending Provider: Doris Tesfaye Primary Care Provider: Sterling Carranza Consulting Providers: Evon Veliz Instructions Additional Instructions / Restrictions: You will need repeat BMP in 1 week. Discharge Orders/Prescriptions Prescriptions: New carvedilol 6.25 mg Tablet 6.25 mg PO BID Qty: 60 RF: 0 nicotine (polacrilex) 2 mg Gum 2 mg PO Q2H PRN PRN (Reason: Nicotine Craving) Qty: 60 RF: 0 lisinopril 20 mg Tablet 20 mg PO BID Qty: 60 RF: 0 spironolactone 25 mg Tablet 25 mg PO DAILY Qty: 30 RF: 0 furosemide [Lasix] 20 mg tablet 60 mg PO BID 30 Days Qty: 180 RF: 0 Continued metformin 500 MG tablet 500 mg PO BIDCM@0900,1700 RF: 0 aspirin 81 MG tablet 81 mg PO DAILY@0900 RF: 0 venlafaxine 150 MG tablet extended release 24hr 150 mg PO DAILY@0900 RF: 0 potassium chloride [Klor-Con M20] 20 MEQ tablet 20 meq PO BID@0900,2100 RF: 0 oxybutynin chloride 10 mg Tablet Extended Release 24hr 10 mg PO DAILY@0900 RF: 0 albuterol sulfate 90 mcg/actuation HFA aerosol inhaler 2 inh INHALATION Q4H PRN (Reason: sob) RF: 0 ondansetron 4 mg tablet,disintegrating 4 mg PO Q6H PRN (Reason: Nausea) RF: 0 Discontinued lisinopril 20 MG tablet 20 mg PO DAILY@0900 RF: 0 amlodipine 5 mg Tablet 5 mg PO DAILY@0900 RF: 0 Referrals / Follow Up: Matthew Stroud MD [STAFF PHYSICIAN] - See Referral Note (Call to establish for sleep study/SHARI follow up. ) Sterling Carranza DO [Primary Care Provider] - Cem Connor DO [STAFF PHYSICIAN] - In 1 Week William Martínez NP, MANAGER [employer] SALES-C [Nurse Practitioner] - Within 2 Weeks (Cardiology, see MANAGER FIELD SALES/PA in two weeks) Disposition Disposition (needs filled in before D/C Order can be placed): Home Health Service Charges/Coding Visit Charges Inpatient E&M: 48961 Disch Hosp
[2021-07-05] MEDS: Spironolactone 25 MG Tablet PO (11:08)
[2021-07-05] MEDS: Nicotine Polacrilex 2 MG GUM PO (12:07)
[2021-07-05 12:09] VITALS: BP 125/89; PULSE 62; RESP 18; O2SAT 96
--- NOTE | 2021-07-06 09:15 | CASEMGMT ---
Addendum entered by Cinthya Siddiqui 07/06/21 16:10: This RN CM has still not heard back from [facility]. Call to [facility] again and this RN CM was able to get thru to Nina, who covers [facility] and she was not aware of referral. Referral faxed directly to her at this time. CM to follow. Tim PEREZ CM Original Note: Still not message from [facility]. Message left with intake again in regards to referral faxed on 07/03/21. CM to follow. Tim PEREZ CM
--- NOTE | 2021-07-07 14:12 | CASEMGMT ---
Just received message from Nina at [facility] that they are unable to accept pt. Tim PEREZ CM
--- NOTE | 2021-07-07 15:15 | CASEMGMT ---
Addendum entered by Cinthya Siddiqui 07/07/21 16:08: Referral faxed to [facility], [facility], [facility], and [facility]. This RN CM to follow for which [facility] is able to accept pt. Tim PEREZ CM Original Note: RN CM Discharge F/U Phone Call Discharge date: 07/05/21 Call date: 07/07/21 Call time: 1520 Admission dx: CHF, anasarca Pt states has been doing 'ok' since discharge. Pt states no questions regarding d/c instructions/medications. Pt states has been 'working on diet' and ordered a scale to watch her weight. Pt updated on difficulty finding [facility] for pt but would still like this RN CM to keep trying. Pt is agreeable to [facility] referral and referral placed at this time. Pt voice no further questions/concerns/needs. CM to keep working on [facility] for pt. Tim PEREZ CM
--- NOTE | 2021-07-08 09:14 | CASEMGMT ---
Addendum entered by Cinthya Siddiqui 07/08/21 15:37: Call to Mayco at [facility] and she states they can open pt beginning next week and will also put her at the top of the list if they have any cancellations. Message left with pt regarding same and the fact there is no [facility] to accept d/t staffing or insurance and this RN LEANDRO's call back number for any further questions/concerns. Tim PEREZ CM Addendum entered by Cinthya Siddiqui 07/08/21 13:40: Call back from [facility] and they are unable to accept. Call to [facility] and they are unable to accept pt also. Pt was referred for [facility] and message left for Mayco at [facility] to call this RN CM back to see how soon they would be able to f/u with pt as no [facility] is able to accept pt at this time. CM to follow. Tim PEREZ CM Addendum entered by Cinthya Siddiqui 07/08/21 09:35: Call from [address] [place] [address] and they do not have the staffing to accept pt at this time. CM to follow. Tim PEREZ CM Original Note: [facility] is not able to accept. CM to follow other referrals. Tim PEREZ CM
--- NOTE | 2021-07-10 09:24 | CCN.REFER ---
CCN REFERRAL PATIENT AGREEABLE TO CCN. THIS RN TO MEET WITH PATIENT TODAY. WE WILL MANAGE MEDICATIONS AND MONITOR WEEKLY VITAL SIGNS.
== END 2021-07-05 12:54 | disposition home health service (06) | DRG 192 ==
LOC: ED 18:02 → PCU 18:27
PROVIDERS: Nurse Practitioner Family; Admitting Provider Internal Medicine; Emergency Provider Emergency Medicine; PCP Student in an Organized Health Care Education/Training Program; Visit Provider Internal Medicine
DX: I11.0 Hypertensive heart disease with heart failure (principal); I42.8 Other cardiomyopathies; Z68.43 Body mass index [BMI] 50.0-59.9, adult; E11.9 Type 2 diabetes mellitus without complications; I50.21 Acute systolic (congestive) heart failure; E66.01 Morbid (severe) obesity due to excess calories; F31.9 Bipolar disorder, unspecified; J44.9 Chronic obstructive pulmonary disease, unspecified; F17.210 Nicotine dependence, cigarettes, uncomplicated; G47.33 Obstructive sleep apnea (adult) (pediatric); E87.6 Hypokalemia; Z79.899 Other long term (current) drug therapy; Z79.84 Long term (current) use of oral hypoglycemic drugs; Z79.82 Long term (current) use of aspirin; Z91.19 Patient's noncompliance with other medical treatment and regimen
CPT/HCPCS: 36415; 71045; 80048; 80061; 82962; 83036; 83735; 83880; 84100; 84443; 84484; 85025; 85610; 93005; 93306; 93458; 97110; 97162; 97166; 97530; 97535; 97802; 99152; 99153; 99251; 99285; 99406; J7040; Q9957; Q9967; A4216; C1769; C1894; C8929; G0463; J1940; J3490

== ENCOUNTER → 2021-07-15 09:17 | Outpatient (CLI) | payer MEDICAID, SELFPAY ==
[2021-07-15 11:50] LABS: BNP,B-Type NATRIURETIC PEPTIDE 122.6 pg/mL (0-100)
[2021-07-15 11:57] LABS: Anion Gap 6 (5-15); BUN 30 mg/dL (7-18); BUN/Creat Ratio 24.2 RATIO (10-20); Calcium,Total 9.6 mg/dL (8.5-10.1); Chloride 100 mmol/L (98-107); Creatinine, Serum 1.24 mg/dL (0.55-1.02); EST Glomerular Filtration Rate 49 mL/min (>60); Est Glom Filt Rate - Afr Amer 59 mL/min (>60); Glucose 108 mg/dL (74-106); Potassium 4.5 mmol/L (3.5-5.1); Sodium Level 134 mmol/L (136-145)
== END ==
PROVIDERS: PCP Student in an Organized Health Care Education/Training Program; Visit Provider Family Medicine
DX: I11.0 Hypertensive heart disease with heart failure (principal); I50.20 Unspecified systolic (congestive) heart failure
CPT/HCPCS: 36415; 80048; 83880

== ENCOUNTER → 2021-07-23 14:15 | Outpatient (CLI) | payer MEDICAID, SELFPAY ==
[2021-07-23 15:51] LABS: Anion Gap 7 (5-15); BUN 81 mg/dL (7-18); BUN/Creat Ratio 22.8 RATIO (10-20); Calcium,Total 10.2 mg/dL (8.5-10.1); Chloride 101 mmol/L (98-107); Creatinine, Serum 3.55 mg/dL (0.55-1.02); EST Glomerular Filtration Rate 15 mL/min (>60); Est Glom Filt Rate - Afr Amer 18 mL/min (>60); Glucose 92 mg/dL (74-106); Potassium 5.6 mmol/L (3.5-5.1); Sodium Level 134 mmol/L (136-145)
== END ==
PROVIDERS: PCP Family Medicine; Referring Provider Physician Assistant Medical; Visit Provider Physician Assistant Medical
DX: I10 Essential (primary) hypertension (principal); I42.8 Other cardiomyopathies
CPT/HCPCS: 36415; 80048

== ENCOUNTER → 2021-07-30 09:35 | Outpatient (CLI) | payer MEDICAID, SELFPAY ==
[2021-07-30 11:36] LABS: Anion Gap 8 (5-15); BUN 50 mg/dL (7-18); BUN/Creat Ratio 26.7 RATIO (10-20); Calcium,Total 9.2 mg/dL (8.5-10.1); Chloride 95 mmol/L (98-107); Creatinine, Serum 1.87 mg/dL (0.55-1.02); EST Glomerular Filtration Rate 30 mL/min (>60); Est Glom Filt Rate - Afr Amer 37 mL/min (>60); Glucose 82 mg/dL (74-106); Potassium 3.4 mmol/L (3.5-5.1); Sodium Level 133 mmol/L (136-145)
== END ==
PROVIDERS: PCP Family Medicine; Visit Provider Physician Assistant Medical
DX: N17.9 Acute kidney failure, unspecified (principal)
CPT/HCPCS: 36415; 80048

== ENCOUNTER → 2021-08-20 06:54 | Outpatient (CLI) | payer MEDICAID, SELFPAY ==
--- NOTE | 2021-08-20 15:08 | PFTCOMP ---
COMPLETE PULMONARY FUNCTION TEST INTERPRETATION Brief HPI: Patient is a 51 year old female, currently under the care of Fawn Yadav, who presents to [facility] for complete pulmonary function tests secondary to diagnosis of asthma. Respiratory therapist reports good effort and reproducible results. Interpretation: Forced expiration spirometry shows no large airways obstructive ventilatory defect with an FEV1 of 99% predicted. There is no significant bronchodilator response by strict ATS criteria. Spirograms are of good quality and plateau normally. The respiratory flow volume loop shows a normal pattern. Lung volumes by body plethysmography show a normal total lung capacity at 4.91 L, 95% predicted. All other lung volumes are within normal limits. Diffusion capacity by carbon monoxide is decreased at 64% predicted. The airway resistance is normal. No previous pulmonary function tests were available for review. Impression: Isolated reduction in diffusion capacity consistent with a pulmonary vascular disorder
== END ==
PROVIDERS: PCP Family Medicine; Referring Provider Nurse Practitioner Acute Care; Visit Provider Nurse Practitioner Acute Care
DX: J45.909 Unspecified asthma, uncomplicated (principal)
CPT/HCPCS: 94060; 94726; 94729

== ENCOUNTER → 2021-08-31 14:26 | Outpatient (CLI) | payer MEDICAID, SELFPAY ==
[2021-08-31 16:45] LABS: Anion Gap 9 (5-15); BUN 12 mg/dL (7-18); BUN/Creat Ratio 13.2 RATIO (10-20); Calcium,Total 9.3 mg/dL (8.5-10.1); Chloride 102 mmol/L (98-107); Creatinine, Serum 0.91 mg/dL (0.55-1.02); EST Glomerular Filtration Rate 70 mL/min (>60); Est Glom Filt Rate - Afr Amer 85 mL/min (>60); Glucose 86 mg/dL (74-106); Potassium 3.6 mmol/L (3.5-5.1); Sodium Level 141 mmol/L (136-145)
== END ==
PROVIDERS: PCP Family Medicine; Visit Provider Physician Assistant Medical
DX: N17.9 Acute kidney failure, unspecified (principal)
CPT/HCPCS: 36415; 80048

== ENCOUNTER 2021-09-22 20:20 | Outpatient (CLI) | payer MEDICAID, SELFPAY | END 2021-09-22 23:59 | disposition short-term general hospital (02) | PROVIDERS: PCP Family Medicine; Visit Provider Nurse Practitioner Acute Care | DX: G47.33 Obstructive sleep apnea (adult) (pediatric) (principal) | CPT/HCPCS: 95811 ==

== ENCOUNTER → 2022-01-11 | Outpatient (CLI) | payer MEDICAID, SELFPAY ==
--- NOTE | 2022-01-11 13:35 | ECHOL_ITS ---
Reason For Study: CMP Procedure This was a limited 2D transthoracic echocardiogram. Limited views were obtained. Exam performed in department. Left Ventricle Normal LV size. Left ventricular systolic function is lower limits of normal. The estimated ejection fraction is 50 %. No regional wall motion abnormalities noted. Right Ventricle Normal RV size. Normal systolic function. Pulmonic Valve The pulmonic valve is not well visualized. Great Vessels Normal aortic root. The pulmonary artery is normal size. Normal inferior vena cava. Pericardium/Pleural No pericardial effusion. MMode/2D Measurements & Calculations LVIDd: 5.6 cm IVSd: 1.0 cm LA dimension: 3.9 cm LVIDs: 4.1 cm LVPWd: 1.00 cm FS: 27.5 % LAV(MOD-bp): 30.3 ml LVAd ap4: 37.2 cm2 LVAd ap2: 33.7 cm2 LAV(MOD-bp) Indexed: 14.4 ml/m2 LVLd ap4: 8.4 cm LVLd ap2: 8.3 cm LAV(MOD-sp2): 39.2 ml EDV(MOD-sp4): 133.2 ml EDV(MOD-sp2): 113.9 ml LAV(MOD-sp4): 22.3 ml EDV(sp4-el): 140.4 ml EDV(sp2-el): 116.9 ml LVAs ap4: 25.5 cm2 LVAs ap2: 24.0 cm2 LVLs ap4: 7.5 cm LVLs ap2: 7.5 cm ESV(MOD-sp4): 71.7 ml ESV(MOD-sp2): 66.1 ml ESV(sp4-el): 73.2 ml ESV(sp2-el): 65.7 ml EF(MOD-sp4): 46.2 % EF(MOD-sp2): 42.0 % EF(sp4-el): 47.9 % SV(MOD-sp4): 61.5 ml SV(MOD-sp2): 47.8 ml SV(sp4-el): 67.2 ml LA A4 area: 10.3 cm2 RA A4 area: 11.3 cm2 Time Measurements MV dec time: 0.21 sec Doppler Measurements & Calculations MV E max woodrow: 62.0 cm/sec Lat Peak E' Woodrow: 6.7 cm/sec Med Peak E' Woodrow: 5.9 cm/sec MV A max woodrow: 77.8 cm/sec E/E' lat: 9.2 E/E' med: 10.4 MV E/A: 0.80 MV V2 max: 74.4 cm/sec MV P1/2t max woodrow: 69.0 cm/sec MV max P.2 mmHg MV P1/2t: 78.3 msec MV V2 mean: 47.6 cm/sec MV mean P.0 mmHg MV dec slope: 258.2 cm/sec2 MV V2 VTI: 18.8 cm MVA(P1/2t): 2.8 cm2 ECHO/Echo, Limited Study Interpretation Summary Normal LV size. Left ventricular systolic function is lower limits of normal. The estimated ejection fraction is 50 %. Compared to previous study, the left ventricular systolic function has improved .. Ordering Physician: Elisabeth Richey Referring Physician: Cem Connor Performed By: Tacos Murillo RCS
== END | disposition home or self-care (01) ==
LOC: CVS 13:34
PROVIDERS: PCP Family Medicine; Referring Provider Physician Assistant Medical; Visit Provider Physician Assistant Medical
DX: I42.8 Other cardiomyopathies (principal)
CPT/HCPCS: 93308

== ENCOUNTER → 2022-02-03 | Outpatient (CLI) | payer MEDICAID, SELFPAY | END | disposition home or self-care (01) | LOC: SL 14:00 | PROVIDERS: PCP Family Medicine; Visit Provider Nurse Practitioner Acute Care | DX: Z46.89 Encounter for fitting and adjustment of other specified devices (principal) ==

== ENCOUNTER → 2022-02-11 | Outpatient (CLI) | payer MEDICAID, SELFPAY ==
[2022-02-11 15:54] LABS: Anion Gap 2 (5-15); BUN 20 mg/dL (7-18); BUN/Creat Ratio 16.7 RATIO (10-20); Calcium,Total 9.1 mg/dL (8.5-10.1); Chloride 104 mmol/L (98-107); EST Glomerular Filtration Rate 51 mL/min (>60); Est Glom Filt Rate - Afr Amer 61 mL/min (>60); Glucose 94 mg/dL (74-106); Potassium 3.1 mmol/L (3.5-5.1); Sodium Level 139 mmol/L (136-145)
== END | disposition home or self-care (01) ==
LOC: LAB 14:29
PROVIDERS: PCP Family Medicine; Visit Provider Physician Assistant Medical
DX: I42.8 Other cardiomyopathies (principal)
CPT/HCPCS: 36415; 80048

== ENCOUNTER 2022-03-30 15:30 | Outpatient (RCR) | payer MEDICAID, SELFPAY ==
--- NOTE | 2022-01-18 11:03 | HP.PTEVAL_ITS ---
Patient's Visit Information SARAH CARLTON is a 51 year old F referred to Physical Therapy by Dr. Cem Connor DO with a diagnosis of Cranial Hypertension. Date of Evaluation: 01/18/22 Physical Therapist: Herrera Barkley PT, ATC - Visit Plan Frequency: 2-3x /Week Duration: 4-6 Weeks Plan: Aquatic therapy consisting of B LE stretching and strengthening, and core stabilization ex's - Subjective Pt was diagnosed with intercranial hypertension a while ago. Pt reports this results in her having difficulty with her balance and generalized weakness. Pt reports she has headaches and migraines as a result of her hypertension. Pt reports she also has short term memory loss. Pt reports she has carpal tunnel in both of her hands. Pt also complains of foot and ankle pain this date. Pt reports it is her hope that she will be able to gain strength and endurance through coming in here for aquatic therapy. Pt is not currently employed. Pt reports she is unable to vacuum or stand for a long period of time to do her dishes secondary to weakness. Pt reports she does have a Hx of falls, falling twice in the past couple weeks. Pt reports she has stairs at home and falls on them frequently. - Objective Neuro: B LE sensation is WNL to light touch. B patellar reflex= 2/3. MMT: B hip flex/abd/add are all 4-/5 throughout. B knee flex and ext are rated at 5/5 throughout. ROM: B LE's are WFL when compared bilaterally. Gait: Pt ambulates with a cane today. Obvious knee valgus with gait indicating weakness in core musculature. Pt was able to ambulate from the waiting room to the eval room approximately 140 feet without difficulty. FGA : Pt was only able to complete the first 5 activities secondary to severe unsteadiness - Balance/Special Test Scores Functional Gait Assessment Score: 4 % Disability: 86.6700 Lower Extremity Functional Score: 29 - Goals Goal 1:: Increase B LE strength x 1 grade to aid with stair negotiation Goal Time Frame: 4-6 Weeks Goal 2:: Increase patients tolerance for activity so that she can perform normal house chores without being limited Goal Time Frame: 4-6 Weeks Goal 3:: I with HEP Goal Time Frame: 4-6 Weeks - Rehabilitation Potential Physical Therapy Diagnosis: Pt has decreased balance and generalized weakness secondary to cranial hypertension Rehabilitation Potential: Good - Anticipated Interventions Patient/Client Instruction: Educate patient on: Condition, Plan of Care For the Purpose of:: To improve self management Therapeutic Exercise to Include: Strength training, Endurance training, Flexibilty training, In an aquatic setting, Dynamic Lumbar Stabilization For the Purpose of:: To decrease pain, To improve muscle performance and motor function, To improve performance and independence with ADL's Thank you for the opportunity to evaluate your patient. For Medicare and Medicare HMO plans, please review the plan of care and approve it. It will need to be FAXED BACK to us at [phone] for Medicare purposes. For Medicare only, by signing this I certify the plan of care. Please let me know if there are questions or concerns regarding this plan of care. Physician Signature: Date:
--- NOTE | 2022-03-16 11:39 | HP.PTREVAL ---
Dr. Cem oCnnor, DO, It has been my pleasure to treat SARAH CARLTON over the last 2 visits for Cranial Hypertension. Please see the progress note below for an update on the physical therapy plan of care! Subjective: My legs and head are sore today. I have also been losing my balance a lot today Objective/Function: B hip MMT is 4/5 throughout. Pt is able to ambulate 340 feet with cane and CGAx1, but then becomes very fatigued and fuzzy in the head. Pt is still very unsteady and weak at this time Plan Plan: Aquatic therapy consisting of B LE stretching and strengthening, and core stabilization ex's Balance/Gait/Functional tests - Balance/Special Test Scores Functional Gait Assessment Score: 4 % Disability: 86.6700 Lower Extremity Functional Score: 38 Goals Goal 1:: Increase B LE strength x 1 grade to aid with stair negotiation Goal Time Frame: 4-6 Weeks Goal Progress: Progressing Goal 2:: Increase patients tolerance for activity so that she can perform normal house chores without being limited Goal Time Frame: 4-6 Weeks Goal Progress: Progressing Goal 3:: I with HEP Goal Time Frame: 4-6 Weeks Goal 4:: Pt will be able to ambulate 600 feet with LRD and SBAx1 toa id with community ambulation Goal Progress: New goal Anticipated Interventions Patient/Client Instruction: Educate patient on: Condition, Plan of Care For the Purpose of:: To improve self management Therapeutic Exercise to Include: Strength training, Endurance training, Flexibilty training, In an aquatic setting, Dynamic Lumbar Stabilization For the Purpose of:: To decrease pain, To improve muscle performance and motor function, To improve performance and independence with ADL's Please do not hesitate to contact me at [phone] by phone or if you have questions or concerns regarding this new plan of care! Sincerely, Herrera Barkley, PT, ATC
--- NOTE | 2022-05-26 12:32 | HP.PT.NRP ---
SARAH CARLTON was seen in my office for initial evaluation on 01/18/22. The following Plan of Care was established for this patient: Initial Frequency: 2-3x /Week Initial Duration: 4-6 Weeks Patient/Client Instruction: Educate patient on: Condition, Plan of Care For the Purpose of:: To improve self management Therapeutic Exercise to Include: Strength training, Endurance training, Flexibilty training, In an aquatic setting, Dynamic Lumbar Stabilization For the Purpose of:: To decrease pain, To improve muscle performance and motor function, To improve performance and independence with ADL's This patient was last seen in our office . Pertinent comments regarding their Physical therapy will appear below: Pt was treated for cranial hypertension pain for 4 PT visits through the date of 03/30/22. Pt has not returned through todays date and is discontinued at this time. At this point I will be discontinuing this patient from physical therapy. I would be happy to see this patient again in the future if found appropriate by the physician. Thank you! Herrera Barkley, PT, ATC Balance/Gait/Functional tests - Balance/Special Test Scores Functional Gait Assessment Score: 4 % Disability: 86.6700 Lower Extremity Functional Score: 38
== END 2022-03-30 19:00 | disposition home or self-care (01) ==
LOC: PT 15:30
PROVIDERS: PCP Family Medicine; Referring Provider Family Medicine; Visit Provider Family Medicine
DX: G93.2 Benign intracranial hypertension (principal); E11.40 Type 2 diabetes mellitus with diabetic neuropathy, unspecified
CPT/HCPCS: 97113; 97161; 97164

== ENCOUNTER 2022-04-24 11:50 | Emergency (ER) | payer MEDICAID, SELFPAY ==
[2022-04-24 11:52] VITALS: BP 116/62; PULSE 72; RESP 17; TEMP 35.3; O2SAT 98; BMI 38.5
--- NOTE | 2022-04-24 12:06 | RAD_ITS ---
STUDY: X-RAY - LEFT HAND REASON FOR EXAM: Female, 51 years old. Pain and stiffness TECHNIQUE: 3 view(s) of the hand. COMPARISON: None. FINDINGS: Normal radiocarpal articulation. Normal distal radioulnar joint. Normal visualized carpal bones. Normal carpal articulations Mild CMC arthrosis. Normal second through fifth carpometacarpal joints. Normal metacarpi. Normal metacarpophalangeal joint of the thumb. Mild interphalangeal joint arthrosis Normal proximal and distal phalanges of the thumb. Normal metacarpophalangeal joints of the second through fifth fingers. Normal proximal interphalangeal joints of the second through fifth fingers. DIP joint arthrosis without subchondral erosions except at the third digit where there are subchondral changes and gullwing deformity. Normal phalanges of the second through fifth fingers. The soft tissue structures are unremarkable. 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 No demonstrated fracture or suspicious osseous lesion Electronically Signed: Tom Cano MD at 12:54 EDT ,
--- NOTE | 2022-04-24 12:06 | RAD_ITS ---
STUDY: X-RAY CHEST REASON FOR EXAM: Female, 51 years old. Chest and rib pain TECHNIQUE: PA and lateral views of the chest. COMPARISON: 07/01/2021 FINDINGS: The lungs are clear and expanded. There is no demonstrated pleural abnormality. Normal size heart. Normal mediastinum and raad. Normal visualized pulmonary arteries. Normal visualized aortic arch and descending thoracic aorta. Normal visualized thoracic spine. Normal visualized ribs, clavicles, and shoulders. There is no demonstrated abnormality of the visualized soft tissue structures of the upper abdomen. RAD/Chest PA and Lateral IMPRESSION: No acute pulmonary process Electronically Signed: Tom Cano MD at 12:53 EDT ,
--- NOTE | 2022-04-24 12:07 | EDS_ITS ---
HPI <ANIBAL Mora - Last Filed: 04/24/22 13:09> History of Present Illness Chief Complaint: Fall Narrative Narrative: Patient had a mechanical fall yesterday and presents with left hand pain. She was using her cane and carrying a plate of food when she tripped and fell onto her left side. She states she hit her head on the table and the left side of her ribs on a box and her left arm on the ground. No LOC. No blood thinners. She just has a mild headache now but no nausea or vomiting. Her main complaint is left hand pain. She is left-hand dominant. [facility] <ANIBAL Mora - Last Filed: 04/24/22 13:09> [facility] Medical History Asthma Bipolar 1 disorder Diabetes Heart failure with reduced ejection fraction HTN (hypertension) with goal to be determined Kidney disease Nonischemic cardiomyopathy Obesity PTSD (post-traumatic stress disorder) Schizoaffective disorder Secondary right ventricular dilation Home Medications aspirin 81 mg tablet,delayed release 81 mg PO DAILY@0900 HEALTH 11/11/16 [History Last Taken 07/01/21] venlafaxine 150 mg tablet,extended release 24 hr 150 mg PO DAILY@0900 DEPRESSION 11/11/16 [History Last Taken 07/01/21] albuterol sulfate 90 mcg/actuation aerosol inhaler 2 inh inhalation Q4H PRN sob 07/01/21 [History Last Taken 06/27/21] ondansetron 4 mg disintegrating tablet 4 mg PO Q6H PRN Nausea 07/01/21 [History Last Taken Unknown] oxybutynin chloride 10 mg tablet,extended release 24 hr 10 mg PO DAILY@0900 BLADDER 07/01/21 [History Last Taken 07/01/21] nicotine (polacrilex) 2 mg gum 2 mg PO Q2H PRN PRN Nicotine Craving #60 ea 07/05/21 [Rx Last Taken Unknown] carvedilol 12.5 mg tablet 12.5 mg PO BID #60 tabs 08/31/21 [Rx Last Taken Unknown] furosemide 20 mg tablet (Lasix) 40 mg PO BID #120 tabs 09/25/21 [Rx Last Taken Unknown] dapagliflozin 10 mg tablet (Farxiga) 10 mg PO DAILY #30 tabs 12/08/21 [Rx Last Taken Unknown] loratadine 10 mg tablet 10 mg PO DAILY #30 tabs 12/08/21 [Rx Last Taken Unknown] multivitamin (Daily Multi-Vitamin tablet) 1 tab PO DAILY 02/11/22 [History Last Taken Unknown] potassium chloride 20 mEq tablet,extended release(part/cryst) (Klor-Con M) 20 meq PO BID #60 TABLETS 04/16/22 [Rx Last Taken Unknown] Allergy/AdvReac Type Severity Reaction Status Date / Time adhesive tape Allergy Unknown Verified 04/24/22 11:51 latex Allergy Unknown Verified 04/24/22 11:51 phenobarbital Allergy Unknown Verified 04/24/22 11:51 Family History Other Colon cancer Diabetes Heart disease Lung cancer Stomach cancer Uterine cancer Surgical History History of cholecystectomy History of hysterectomy History of left heart catheterization (07/03/21) Social History household members: children number of children: 3 current occupational status: disabled Smoking Status: Current every day smoker tobacco type: cigarettes alcohol intake: never substance use type: does not use ROS <ANIBAL Mora - Last Filed: 04/24/22 13:09> ROS ED ROS Narrative Constitutional: Negative for fever, chills, malaise. Eyes: Negative for visual change. ENT: Negative for sore throat, ear pain, rhinorrhea. CVS: Negative for palpitations, chest pain, syncope. Respiratory: Negative for shortness of breath, cough, orthopnea. GI: Negative for abdominal pain, nausea, vomiting. : Negative for dysuria, hematuria or frequency. Neuro: Negative for headache, motor/sensory dysfunction. Skin: Negative for rash, abscess, or wound. Musc: Positive for left hand pain, rib pain, trauma. Heme: Negative for easy bruising, bleeding, lymphadenopathy. EXAM <ANIBAL Mora - Last Filed: 04/24/22 13:09> Physical Exam Narrative Exam Narrative: CONST: Patient sitting in no acute distress. EYES: Normal inspection. HEAD: Head normocephalic atraumatic, no tenderness, no raccoon eyes or weinstein sign, no hemotympanum, no nasal septal hematoma, no CSF otorrhea or rhinorrhea. NECK: Normal inspection. RESP: No respiratory distress, CTAB. Tender to palpation over left anterior lateral ribs under her left breast, no deformity or crepitus. CVS: Regular rate and rhythm, no murmur, no gallop. ABD: Soft and nontender, no guarding or rebound. SKIN: Color normal, no rash, warm, dry, intact. EXTREMITIES: Normal appearance, tenderness over left wrist and dorsum of hand over the first and second metacarpals. No deformity or crepitus. No tenderness over the shoulder, elbow, MCPs or digits. No scaphoid tenderness. Full range of motion, motor and sensory function intact in median ulnar and radial distributions, 2+ radial pulse and brisk cap refill. NEURO: Oriented x4. PSYCH: Normal affect. Const Vital Signs: 04/24/22 11:52 04/24/22 13:01 04/24/22 13:23 Temperature 95.5 F L Temperature Source Temporal Pulse Rate 72 74 Respiratory Rate 17 17 Respiratory Effort Normal Respiratory Depth Normal Respiratory Pattern Normal Blood Pressure 116/62 Blood Pressure Mean 80 Pulse Ox 98 97 Oxygen Delivery Method Room Air <Dr. Mckenna Jones MD - Last Filed: 04/24/22 13:28> Physical Exam Const Vital Signs: 04/24/22 11:52 04/24/22 13:01 04/24/22 13:23 Temperature 95.5 F L Temperature Source Temporal Pulse Rate 72 74 Respiratory Rate 17 17 Respiratory Effort Normal Respiratory Depth Normal Respiratory Pattern Normal Blood Pressure 116/62 Blood Pressure Mean 80 Pulse Ox 98 97 Oxygen Delivery Method Room Air MDM <ANIBAL Mora - Last Filed: 04/24/22 13:09> [facility] Narrative Medical decision making narrative: Patient had a mechanical fall yesterday. Did sustain closed head injury without LOC. Presents with left rib pain and left wrist and hand pain. She has no signs of head trauma or basilar skull fracture. According to [place] CT head rule, no indication for imaging. No midline spinal tenderness. Does have slight tenderness over left anterior lateral ribs with no deformity or crepitus. Normal heart and lung sounds. No abdominal tenderness. Left upper extremity appears normal with no signs of trauma. Slight tenderness over the wrist and first and second metacarpals. X-rays of the chest, left wrist and hand all negative. Patient reassured and counseled on symptomatic treatment for contusions and was discharged in stable condition. 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 No demonstrated fracture or suspicious osseous lesion Electronically Signed: Tom Cano MD at 12:54 EDT , Wrist X-Ray 04/24/22 12:08 IMPRESSION: No demonstrated fracture or suspicious osseous lesion, mild CMC joint arthrosis Electronically Signed: Tom Cano MD at 12:55 EDT , <Dr. 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 No demonstrated fracture or suspicious osseous lesion Electronically Signed: Tom Cano MD at 12:54 EDT , Wrist X-Ray 04/24/22 12:08 IMPRESSION: No demonstrated fracture or suspicious osseous lesion, mild CMC joint arthrosis Electronically Signed: Tom Cano MD at 12:55 EDT , Treatment and Re-Evaluation Narrative: Patient seen and evaluated with THEODORA. I personally interviewed and examined the patient. I was involved in all aspects of patient's orders, interpretation of results, and treatment. Patient presents secondary left wrist and arm pain along with left rib pain after a fall last evening. She states she has problems with her balance at baseline and usually uses a cane to help her ambulate. She was trying to carry her dinner plate yesterday and lost her balance. She hit her head on a table and her left ribs against a box was on the floor. She complaining of pain to her ribs as well as her left hand and wrist. Patient sitting upright in bed no acute distress. Head and neck examination reveals no external trauma. Heart is regular rate and rhythm. Lung sounds are clear. Abdomen is soft and nontender. Left upper extremity examination reveals tenderness over the metacarpals as well as the wrist. No deformity noted. Good range of motion with normal sensation and cap refill. X-rays of the chest along with left hand and left wrist are obtained. Per my interpretation no acute abnormalities noted. Radiology interpretation is reviewed. Pete wrap is applied to the left wrist. Patient updated on test results. Return instructions given. Discharge Plan Triage Chief Complaint: Fall ED Midlevel Provider: Jennifer Fitzgerald ED Provider: Mckenna Jones Dx/Rx/DC Orders Clinical Impression: Contusion of left wrist, Contusion of rib on left side, Head injury Instructions: ED Contusion, Upper Extremity, ED Rib Contusion or Minor Fracture Prescriptions: No Action carvedilol 12.5 mg tablet 12.5 mg PO BID Qty: 60 11RF Farxiga 10 mg tablet 10 mg PO DAILY Qty: 30 11RF loratadine 10 mg tablet 10 mg PO DAILY Qty: 30 6RF multivitamin [Daily Multi-Vitamin] Tablet 1 tab PO DAILY aspirin 81 MG tablet 81 mg PO DAILY@0900 venlafaxine 150 MG tablet extended release 24hr 150 mg PO DAILY@0900 oxybutynin chloride 10 mg Tablet Extended Release 24hr 10 mg PO DAILY@0900 albuterol sulfate 90 mcg/actuation HFA aerosol inhaler 2 inh INHALATION Q4H PRN (Reason: sob) Label Comments: INHALE 2 PUFFS BY MOUTH EVERY 4 HOURS NEEDED FOR WHEEZING OR FOR SHORTNESS OF BREATH.DISPENSE INHALER PREFERRED BY PATIENT INSURANCE ondansetron 4 mg tablet,disintegrating 4 mg PO Q6H PRN (Reason: Nausea) Label Comments: DISSOLVE 1 TABLET BY MOUTH EVERY 6 HOURS NEEDED FOR NAUSEA/VOMITING nicotine (polacrilex) 2 mg Gum 2 mg PO Q2H PRN PRN (Reason: Nicotine Craving) Qty: 60 0RF furosemide [Lasix] 20 mg tablet 40 mg PO BID Qty: 120 11RF potassium chloride [Klor-Con M20] 20 mEq tablet,ER particles/crystals 20 meq PO BID Qty: 60 11RF Primary Care Provider: Cem Connor Referrals: Cem Connor DO [Primary Care Provider] - Activity Restrictions/Additional Instructions: X-rays of ER chest and left wrist and hand showed no broken bones. Rest, ice, and take Tylenol or ibuprofen as needed. Disposition Disposition: Home, Self Care Discharge Date/Time: 04/24/22 13:25
--- NOTE | 2022-04-24 12:08 | RAD_ITS ---
STUDY: X-RAY - LEFT WRIST REASON FOR EXAM: Female, 51 years old. Pain and stiffness TECHNIQUE: 63 view(s) of the wrist were obtained. COMPARISON: None. FINDINGS: Normal visualized distal radius and ulna. Normal radiocarpal articulation. Normal distal radioulnar articulation. Normal carpal bones. Normal carpal articulations. Mild CMC arthrosis. Normal second through fifth carpometacarpal articulations. Normal visualized metacarpal bones. The soft tissue structures are unremarkable. RAD/Wrist min 3 Views IMPRESSION: No demonstrated fracture or suspicious osseous lesion, mild CMC joint arthrosis Electronically Signed: Tom Caon MD at 12:55 EDT ,
[2022-04-24 13:23] VITALS: PULSE 74; RESP 17; O2SAT 97
== END 2022-04-24 13:25 | disposition home or self-care (01) ==
PROVIDERS: Emergency Provider Emergency Medicine; PCP Family Medicine; Visit Provider Emergency Medicine
DX: S20.212A Contusion of left front wall of thorax, initial encounter (principal); I11.0 Hypertensive heart disease with heart failure; I42.8 Other cardiomyopathies; I50.22 Chronic systolic (congestive) heart failure; E11.9 Type 2 diabetes mellitus without complications; W19.XXXA Unspecified fall, initial encounter; S60.212A Contusion of left wrist, initial encounter
CPT/HCPCS: 71046; 73110; 73130; 99282

== ENCOUNTER → 2022-06-17 | Outpatient (CLI) | payer MEDICAID, SELFPAY ==
[2022-06-17 17:47] LABS: Erythrocyte Sedimentation Rate 45 mm/hr (0-30)
[2022-06-17 18:29] LABS: Rheumatoid Factor < 10.0 IU/mL (<15)
[2022-06-17 18:35] LABS: Vitamin B12 295 pg/mL (211-911)
[2022-06-22 10:45] LABS: CCP IgG Antibodies 3 units (0-19)
== END | disposition home or self-care (01) ==
LOC: BFHLAB 15:11
PROVIDERS: PCP Family Medicine; Visit Provider Family Medicine
DX: M13.0 Polyarthritis, unspecified (principal); R53.83 Other fatigue
CPT/HCPCS: 36415; 82607; 85652; 86140; 86200; 86431

== ENCOUNTER → 2022-07-29 | Outpatient (CLI) | payer MEDICAID, SELFPAY ==
--- NOTE | 2022-07-29 16:05 | BI_ITS ---
MAMMOGRAPHY - BILATERAL SCREENING REASON FOR EXAM: Female, 52 years old. Routine annual screening examination. PERTINENT HISTORY: Sister with breast cancer. Mother with breast cancer. Aunt with breast cancer. History of uterine and ovarian carcinoma. TECHNIQUE: Digital bilateral breast kayleen (3D mammographic acquisition) in the CC and MLO projections. 2-D mediolateral oblique (MLO) and craniocaudad (CC) views of both breasts were obtained. CAD: Full Field Digital Mammography with Computer Added Detection was performed. COMPARISON: Comparison is made with prior outside examination dated 01/26/2018. FINDINGS: Breast Composition: There are scattered areas of fibroglandular density. There are no dominant masses or suspicious calcifications. No other significant abnormalities are identified. There has been no significant change since the prior study. BI/SCRN MAMM (CAD)W/KAYLEEN BILAT IMPRESSION: Stable bilateral screening mammogram. Yearly follow-up mammogram recommended. (A) ASSESSMENT CATEGORY: BIRADS Category 1: Negative. A letter regarding these results will be sent to the patient by the facility within 30 days. Approximately 10% of breast cancers are not detected by mammography. A normal mammogram should not delay biopsy of a clinically suspicious abnormality. [id number] Electronically Signed: Ayan Wiggins MD at 8:19 EST ,
== END | disposition home or self-care (01) ==
LOC: OPBI 07-30 07:12
PROVIDERS: PCP Family Medicine; Visit Provider Family Medicine
DX: Z12.31 Encounter for screening mammogram for malignant neoplasm of breast (principal); Z80.3 Family history of malignant neoplasm of breast
CPT/HCPCS: 77063; 77067

== ENCOUNTER → 2022-10-07 | Outpatient (CLI) | payer MEDICAID, SELFPAY ==
[2022-10-07 08:37] LABS: Cholesterol 240 mg/dL (200); High Density Lipoprotein 37 mg/dL; Triglycerides 247 mg/dL; Very Low Density Lipoprotein 49 mg/dL (5-40)
--- NOTE | 2022-10-07 12:21 | STRESSREP_ITS ---
Stress Test Report Date: 10/07/2022 Procedure: Pharmacologic stress nuclear imaging study Indications: Dyspnea on Consent: Per the patient Procedure: The patient underwent pharmacologic (Regadenoson 0.4mg ) evaluation with a peak heart rate of 85 beats per minute (50%predicted maximal heart rate) and a peak blood pressure of 138/90 mmHg. The baseline ECG demonstrated normal sinus rhythm. The peak pharmacologic ECG demonstrated no ischemic changes. There were no cardiac dysrhythmias pretest, during pharmacologic infusion, or recovery. There was no complaint of chest discomfort during pharmacologic infusion or recovery. The patient was injected with 40 millicuries of technetium 99m Cardiolite and subsequently rest SPECT Cardiolite nuclear imaging was obtained in the horizontal long, vertical long, and short axis views. The patient underwent pharmacologic (Regadenoson) evaluation. The patient was injected with 45 millicuries of technetium 99m Cardiolite and subsequently stress SPECT Cardiolite nuclear imaging was obtained in the horizontal long, vertical long, and short axis views. A gated Cardiolite study at peak stress was obtained. The examination was stopped secondary to completion of protocol. Rest and stress SPECT Cardiolite nuclear imaging status post realignment, normalization, and attenuation correction demonstrate mildly reduced perfusion of the apex which is fixed. There is end systolic thickening and brightening. The gated Cardiolite study demonstrates myocardial thickening and inward wall motion. The reported LVEF is 55%. Impression: 1. Pharmacologic (Regadenoson) evaluation 2. Peak pharmacologic ECG with no ischemic changes. 3. There were no cardiac dysrhythmias pretest, during pharmacologic infusion, or recovery. 5. Fixed mildly reduced perfusion of the apex. There is good systolic thickening. No evidence of reversible ischemia. 6. The gated Cardiolite study reports an LVEF of 55%. This note was generated with cdream networkation software. It may contain incorrect words, spelling, and punctuation that were not noted in checking the note before signing.
== END | disposition home or self-care (01) ==
LOC: CVS 07:01
PROVIDERS: PCP Family Medicine; Referring Provider Internal Medicine Cardiovascular Disease; Visit Provider Internal Medicine Cardiovascular Disease
DX: I25.10 Atherosclerotic heart disease of native coronary artery without angina pectoris (principal)
CPT/HCPCS: 36415; 78452; 80061; 93017; A9500; A4216; J2785

== ENCOUNTER → 2023-01-21 | Outpatient (CLI) | payer MEDICAID, SELFPAY ==
[2023-01-21 12:43] LABS: Erythrocyte Sedimentation Rate 25 mm/hr (0-30)
[2023-01-21 13:11] LABS: Anion Gap 6 (5-15); BUN 11 mg/dL (7-18); BUN/Creat Ratio 10.9 RATIO (10-20); Chloride 104 mmol/L (98-107); Creatinine, Serum 1.01 mg/dL (0.55-1.02); EST Glomerular Filtration Rate 62 mL/min (>60); Est Glom Filt Rate - Afr Amer 74 mL/min (>60); Glucose 121 mg/dL (74-106); Potassium 3.5 mmol/L (3.5-5.1); Sodium Level 139 mmol/L (136-145)
== END | disposition home or self-care (01) ==
LOC: BFHLAB 11:07
PROVIDERS: PCP Family Medicine; Referring Provider Family Medicine; Visit Provider Family Medicine
DX: M25.50 Pain in unspecified joint (principal); N18.31 Chronic kidney disease, stage 3a
CPT/HCPCS: 36415; 80048; 85652; 86140

== ENCOUNTER → 2023-07-13 | Outpatient (CLI) | payer MEDICAID, SELFPAY ==
[2023-07-13 15:10] LABS: ALB/GLOB Ratio 0.9 RATIO (0.9-2.4); AST(SGOT) 12 U/L (15-37); Alanine Aminotransfer ALT/SGPT 22 U/L (13-56); Albumin, Serum 3.5 g/dL (3.2-5.0); Alkaline Phosphatase 166 U/L (45-117); Anion Gap 4 (5-15); BUN 13 mg/dL (7-18); Calcium,Total 8.9 mg/dL (8.5-10.1); Chloride 103 mmol/L (98-107); Cholesterol 184 mg/dL (200); EST Glomerular Filtration Rate 62 mL/min (>60); Est Glom Filt Rate - Afr Amer 75 mL/min (>60); Globulin 3.9 g/dL (2.2-4.2); Glucose 121 mg/dL (74-106); High Density Lipoprotein 42 mg/dL; Potassium 3.2 mmol/L (3.5-5.1); Protein, Total 7.4 g/dL (6.4-8.2); Sodium Level 141 mmol/L (136-145); Triglycerides 198 mg/dL; Very Low Density Lipoprotein 40 mg/dL (5-40)
== END | disposition home or self-care (01) ==
LOC: LAB 14:05
PROVIDERS: PCP Family Medicine; Referring Provider Physician Assistant Medical; Visit Provider Physician Assistant Medical
DX: I42.8 Other cardiomyopathies (principal); E78.00 Pure hypercholesterolemia, unspecified
CPT/HCPCS: 36415; 80053; 80061

== ENCOUNTER → 2023-07-28 | Outpatient (CLI) | payer MEDICAID, SELFPAY ==
[2023-07-28 09:30] LABS: Anion Gap 5 (5-15); BUN 12 mg/dL (7-18); BUN/Creat Ratio 12.1 RATIO (10-20); Calcium,Total 8.8 mg/dL (8.5-10.1); Chloride 106 mmol/L (98-107); Creatinine, Serum 0.99 mg/dL (0.55-1.02); EST Glomerular Filtration Rate 63 mL/min (>60); Est Glom Filt Rate - Afr Amer 76 mL/min (>60); Glucose 129 mg/dL (74-106); Sodium Level 142 mmol/L (136-145)
[2023-07-28 09:41] LABS: AST(SGOT) 10 U/L (15-37); Alanine Aminotransfer ALT/SGPT 24 U/L (13-56); Albumin, Serum 3.7 g/dL (3.2-5.0); Alkaline Phosphatase 166 U/L (45-117); Bilirubin, Direct 0.14 mg/dL (0.00-0.30); Cholesterol 147 mg/dL (200); Globulin 4.3 g/dL (2.2-4.2); High Density Lipoprotein 37 mg/dL; Triglycerides 199 mg/dL; Very Low Density Lipoprotein 40 mg/dL (5-40)
== END | disposition home or self-care (01) ==
PROVIDERS: Nurse Practitioner Gerontology; PCP Family Medicine; Referring Provider Physician Assistant Medical; Visit Provider Physician Assistant Medical
DX: E78.00 Pure hypercholesterolemia, unspecified (principal); I42.8 Other cardiomyopathies
CPT/HCPCS: 36415; 80048; 80061; 80076

== ENCOUNTER → 2024-01-31 | Outpatient (CLI) | payer MEDICAID, SELFPAY ==
[2024-01-31 12:55] LABS: AST(SGOT) 14 U/L (15-37); Alanine Aminotransfer ALT/SGPT 21 U/L (13-56); Albumin, Serum 3.8 g/dL (3.2-5.0); Alkaline Phosphatase 159 U/L (45-117); Bilirubin, Direct 0.15 mg/dL (0.00-0.30); Cholesterol 178 mg/dL (200); High Density Lipoprotein 35 mg/dL; Protein, Total 7.8 g/dL (6.4-8.2); Triglycerides 186 mg/dL; Very Low Density Lipoprotein 37 mg/dL (5-40)
[2024-01-31 13:39] LABS: Vitamin D,25 Hydroxy 27.1 ng/mL
[2024-01-31 14:52] LABS: Hemoglobin A1c 5.9 % (3.8-5.6)
== END | disposition home or self-care (01) ==
LOC: BFHLAB 10:39
PROVIDERS: Nurse Practitioner Gerontology; PCP Family Medicine; Visit Provider Family Medicine
DX: R73.01 Impaired fasting glucose (principal); R74.8 Abnormal levels of other serum enzymes; E78.00 Pure hypercholesterolemia, unspecified
CPT/HCPCS: 36415; 80061; 80076; 82306; 83036

== ENCOUNTER → 2024-02-07 | Outpatient (CLI) | payer MEDICAID, SELFPAY ==
--- NOTE | 2024-02-07 12:59 | BI_ITS ---
MAMMOGRAPHY - BILATERAL SCREENING REASON FOR EXAM: Female, 53 years old. Routine annual screening examination. PERTINENT HISTORY: Mother with breast cancer. Personal history of uterine and ovarian carcinoma. TECHNIQUE: Digital bilateral breast kayleen (3D mammographic acquisition) in the CC and MLO projections. 2-D mediolateral oblique (MLO) and craniocaudad (CC) views of both breasts were obtained. CAD: Full Field Digital Mammography with Computer Added Detection was performed. COMPARISON: Comparison is made with prior study dated July 29, 2022. FINDINGS: Breast Composition: There are scattered areas of fibroglandular density. There are no dominant masses or suspicious calcifications. No other significant abnormalities are identified. There has been no significant change since the prior study. BI/SCRN MAMM (CAD)W/KAYLEEN BILAT IMPRESSION: Stable bilateral screening mammogram. Yearly follow-up mammogram recommended. (A) ASSESSMENT CATEGORY: BIRADS Category 1: Negative. A letter regarding these results will be sent to the patient by the facility within 30 days. Approximately 10% of breast cancers are not detected by mammography. A normal mammogram should not delay biopsy of a clinically suspicious abnormality. [id number] Electronically Signed: Ayan Wiggins MD at 14:34 EDT ,
== END | disposition home or self-care (01) ==
LOC: OPBI 12:57
PROVIDERS: PCP Family Medicine; Referring Provider Family Medicine; Visit Provider Family Medicine
DX: Z12.31 Encounter for screening mammogram for malignant neoplasm of breast (principal); Z80.3 Family history of malignant neoplasm of breast
CPT/HCPCS: 77063; 77067

== ENCOUNTER → 2024-03-05 | Outpatient (CLI) | payer MEDICAID, SELFPAY ==
--- NOTE | 2024-03-05 14:12 | CT_ITS ---
HISTORY: TOBACCO USE. TECHNIQUE: Helically acquired images were obtained of the chest without contrast. A radiation dose optimization technique was used for this scan. 915 images. COMPARISON: None. FINDINGS: LARGE AIRWAYS: Patent. LUNGS: 5 mm right lower lobe pleural-based nodule on image 94/255. PLEURA: No pneumothorax or significant pleural effusion. HEART/PERICARDIUM: Heart within normal limits in size. No significant coronary artery calcification. No pericardial effusion. VESSELS: Thoracic aorta nondilated. Very mild atherosclerosis. MEDIASTINUM/TIERRA: No pathologically enlarged adenopathy. UPPER ABDOMEN: Cholecystectomy. BONES: Intact. CT/Low Dose CT Lung Screening IMPRESSION: 5 mm right lower lobe pleural-based pulmonary nodule. Lungs-RADS category 2: Continue annual screening with low dose CT. Electronically Signed: Susan Atkinson MD at 11:49 EDT ,
== END | disposition home or self-care (01) ==
PROVIDERS: PCP Family Medicine; Referring Provider Family Medicine; Visit Provider Family Medicine
DX: Z12.2 Encounter for screening for malignant neoplasm of respiratory organs (principal); Z72.0 Tobacco use
CPT/HCPCS: 71271

== ENCOUNTER → 2024-04-13 | Outpatient (CLI) | payer MEDICAID, SELFPAY | END | disposition home or self-care (01) | LOC: LABSPEC 16:15 | PROVIDERS: PCP Family Medicine; Referring Provider Family Medicine; Visit Provider Family Medicine | DX: N30.00 Acute cystitis without hematuria (principal) | CPT/HCPCS: 87077; 87086; 87088; 87186 ==

== ENCOUNTER 2024-04-20 13:33 | Emergency (ER) | payer MEDICAID, SELFPAY ==
[2024-04-20 13:33] VITALS: BP 126/99; PULSE 71; RESP 14; TEMP 36.2; O2SAT 99
--- NOTE | 2024-04-20 13:38 | RAD_ITS ---
INDICATION: FALL, SWELLING AND PAIN EXAMINATION/TECHNIQUE: X-RAY - RIGHT XR Ankle Min 3 Views 3 VIEWS COMPARISON: Prior study dated: 08/11/2015 FINDINGS: SOFT TISSUES: There is prominent lateral soft tissue swelling. No radiopaque foreign body. BONES/JOINTS: Subtle linear lucency along the lateral malleolus suggests a nondisplaced fracture. Corticated ossification at the medial malleolus likely from prior injury, unchanged. Ankle joint effusion noted.. The ankle mortise is congruent. RAD/Ankle min 3 Views IMPRESSION: Nondisplaced fracture of the lateral malleolus with prominent overlying soft tissue swelling. Electronically Signed: Parish Slade MD at 13:57 EDT ,
--- NOTE | 2024-04-20 14:30 | EDS_ITS ---
HPI History of Present Illness Chief Complaint: Lower Extremity Injury Detail of Chief Complaint: Injury right ankle Informant: patient Occured/Mechanism Comment: Plan inversion mechanism of injury walking her dog Onset/Context/Timing Onset: Hours (1 hour prior to arrival) Context: Sudden Onset Timing: Continuous Quality of Pain: Dull and Aching Location: Right ankle laterally Current Severity: Mild Maximum Severity: Severe Worsened by: Weightbearing Relieved by: Nothing Associated Symptoms Associated Symptoms: Positive for Loss of Funtion; Negative for Parasthesia or Weakness Narrative Narrative: Patient is a 53-year-old heavyset woman who is at risk for fall who presents with right ankle injury. This occurred while walking her dog prior to arrival. She was brought in by family member. She denies paresthesia, anesthesia or motor weakness. She denies prior injury to that ankle. There is a past history of GERD, chronic kidney disease, chronic systolic congestive heart failure, obstructive sleep apnea, asthma, benign essential hypertension and poorly controlled type 2 diabetes. She also has history of schizoaffective disorder. Tetanus Immunization: 5-10 years Prior similar symptoms: No Recent Illness/Hospitalization: No PFSH PFS Medical History PTSD (post-traumatic stress disorder) Nonischemic cardiomyopathy Secondary right ventricular dilation Heart failure with reduced ejection fraction Obesity Asthma Bipolar 1 disorder Schizoaffective disorder Kidney disease Diabetes HTN (hypertension) with goal to be determined Home Medications ?Medication ?Instructions ?Recorded ?Last Taken ?Type aspirin 81 mg tablet,delayed 81 mg PO DAILY@0900 HEALTH 11/11/16 07/01/21 History release venlafaxine 150 mg tablet,extended 150 mg PO DAILY@0900 DEPRESSION 11/11/16 07/01/21 History release 24 hr albuterol sulfate 90 mcg/actuation 2 inh inhalation Q4H PRN sob 07/01/21 06/27/21 History aerosol inhaler oxybutynin chloride 10 mg 10 mg PO DAILY@0900 BLADDER 07/01/21 07/01/21 History tablet,extended release 24 hr multivitamin (Daily Multi-Vitamin 1 tab PO DAILY 02/11/22 Unknown History tablet) Neomycin-Polymyxin B Sulfates 1 gtt EACH EAR BID PRN Ear Pain 06/15/22 Unknown History loratadine 10 mg tablet 10 mg PO DAILY #30 tabs 07/14/22 Unknown Rx carvedilol 12.5 mg tablet 12.5 mg PO BID #60 tabs 09/29/22 Unknown Rx atorvastatin 10 mg tablet 10 mg PO QHS #30 tabs 10/07/22 Unknown Rx hydroxychloroquine 200 mg tablet 200 mg PO DAILY 01/31/23 Unknown History potassium chloride 20 mEq 20 meq PO DAILY #30 TABLETS 07/13/23 Unknown Rx tablet,extended release(part/cryst) (Klor-Con M) spironolactone 25 mg tablet 25 mg PO DAILY #30 tabs 07/13/23 Unknown Rx dapagliflozin propanediol 10 mg 10 mg PO DAILY #30 tabs 12/20/23 Unknown Rx tablet (Farxiga) cyanocobalamin (vitamin B-12) 1,000 mcg PO DAILY 12/27/23 Unknown History 1,000 mcg tablet tumeric PO DAILY 12/27/23 Unknown History celecoxib 200 mg capsule 200 mg PO QDAY 02/14/24 Unknown History cholecalciferol (vitamin D3) 50 50 mcg PO QDAY 02/14/24 Unknown History mcg (2,000 unit) capsule (Vitamin D3) furosemide 40 mg tablet 20 mg PO DAILY 02/14/24 Unknown History omeprazole 40 mg capsule,delayed 40 mg PO DAILY #30 caps 02/14/24 Unknown Rx release polyethylene glycol 3350 17 gram 17 g PO DAILY 02/14/24 Unknown History oral powder packet (Miralax) sennosides 8.6 mg-docusate sodium 1 tab-cap PO BID #60 tabs 02/14/24 Unknown Rx 50 mg tablet (Senna Plus) hydrocodone-acetaminophen 5-325mg 1 tab PO Q6H PRN PRN Pain 3 days 04/20/24 Unknown Rx 5mg-325mg #10 TABLETS Allergy/AdvReac Type Severity Reaction Status Date / Time adhesive tape Allergy Unknown Verified 04/20/24 13:34 latex Allergy Unknown Verified 04/20/24 13:34 phenobarbital Allergy Unknown Verified 04/20/24 13:34 Family History Other Colon cancer Diabetes Heart disease Lung cancer Stomach cancer Uterine cancer Surgical History S/P appendectomy S/P eye surgery S/P lymph node biopsy H/O removal of cyst History of left heart catheterization (07/03/21) History of cholecystectomy History of hysterectomy Social History household members: children number of children: 3 current occupational status: disabled Smoking Status: Current every day smoker tobacco type: cigarettes and e- cigarettes alcohol intake: never substance use type: marijuana caffeine: Yes (1 liter soda) Type: carbonated beverages and tea Number of servings: 2 ROS ROS ED Constitutional Constitutional ED: Denies chills, fever(s), subjective, sweats or weight loss Eyes Eyes: Denies blurry vision or change in vision Cardiovascular Cardiovascular: Denies chest pain or palpitations Respiratory/Chest Respiratory/Chest: Denies dyspnea Gastrointestinal Gastrointestinal: Reports nausea and other Details: Nausea when the pain gets worse ; Denies diarrhea or vomiting Musculoskeletal Musculoskeletal: Reports other Details: Ankle pain Neurologic Neurologic: Denies paresthesias or weakness Hematologic/Lymphatic Hematologic/Lymphatic: Denies easy bleeding or easy bruising EXAM Physical Exam Const Vital Signs: 04/20/24 13:33 Temperature 97.2 F L Temperature Source Temporal Pulse Rate 71 Respiratory Rate 14 Blood Pressure 126/99 H Blood Pressure Mean 108 Pulse Ox 99 Oxygen Delivery Method Room Air Positive well nourished and well developed Constitutional Narrative: Patient appears uncomfortable. Vital signs were noted. General Appearance ED: well developed HEENT Reports moist mucous membranes normocephalic and atraumatic Eyes PERRL Eyes Narrative: Extract muscles intact. Neck full ROM Resp normal respiratory effort Cardio regular rate and regular rhythm Extremity Negative for normal to inspection or full ROM Extremity Narrative: There is soft tissue swelling with ecchymosis noted over the lateral malleolus. There is pain ovation of lateral malleolus. No pain ovation of the medial malleolus or deltoid ligament. There is no actual drawer testing. There is no pain the the patient of the fifth met at tarsal. DP pulses palpable. General Extremety ED: Yes weight-bearing difficulty General Extremity: weight-bearing difficulty Neuro oriented x3 and CN's II-XII intact bilaterally Sensorium / Orientation: alert Psych mental status grossly normal Skin no wounds Lesions: no lesions Rashes: no rashes Trauma: Negative for abrasion MDM MDM MDM Narrative Medical decision making narrative: Differential diagnosis is sprain versus fracture. Will obtain x-rays of the ankle. X-rays were entered per nurse protocol. Radiography Chest X-Ray - ED: Read by ED Physician (Three-view x-ray of the ankle reveals a transverse nondisplaced fracture of the lateral malleolus below the joint line. There is no widening of the mortise. There is no evidence of fracture of the base of the fifth metatarsal.) Diagnostic Testing: Clinical Impression(s) from Imaging Studies Ankle X-Ray 04/20/24 13:38 IMPRESSION: Nondisplaced fracture of the lateral malleolus with prominent overlying soft tissue swelling. Electronically Signed: Parish Slade MD at 13:57 EDT , Management Discussion w/another healthcare provider: Machine Turner (Spoke with Dr. Martin is on- call for podiatry. Recommended walking boot with crutches since she is having difficulty bearing weight and to bear weight as tolerated. Recommendation to give her crutches so that she does not fall since she is prone to fall based on body habitus.) Discharge Plan Triage Chief Complaint: Lower Extremity Injury ED Provider: Alex Rizo Dx/Rx/DC Orders Clinical Impression: Closed fracture of lateral malleolus of right ankle, Nonischemic cardiomyopathy, Hypertension, Type II diabetes mellitus, uncontrolled, Schizoaffective disorder, Adult BMI 50.0-59.9 kg/sq m Instructions: ED Ankle Fracture, Distal Fibula Prescriptions: New hydrocodone-acetaminophen 5-325 mg tablet 1 tab PO Q6H PRN PRN (Reason: Pain) 3 Days Qty: 10 0RF No Action multivitamin [Daily Multi-Vitamin] Tablet 1 tab PO DAILY furosemide 40 mg tablet 20 mg PO DAILY cholecalciferol (vitamin D3) [Vitamin D3] 50 mcg (2,000 unit) capsule 50 mcg PO QDAY celecoxib 200 mg capsule 200 mg PO QDAY polyethylene glycol 3350 [Miralax] 17 gram powder in packet 17 g PO DAILY sennosides-docusate sodium [Senna Plus] 8.6-50 mg tablet 1 tab-cap PO BID Qty: 60 3RF omeprazole 40 mg capsule,delayed release(DR/EC) 40 mg PO DAILY Qty: 30 3RF aspirin 81 MG tablet 81 mg PO DAILY@0900 venlafaxine 150 MG tablet extended release 24hr 150 mg PO DAILY@0900 oxybutynin chloride 10 mg Tablet Extended Release 24hr 10 mg PO DAILY@0900 albuterol sulfate 90 mcg/actuation HFA aerosol inhaler 2 inh INHALATION Q4H PRN (Reason: sob) Patient Comments: INHALE 2 PUFFS BY MOUTH EVERY 4 HOURS NEEDED FOR WHEEZING OR FOR SHORTNESS OF BREATH.DISPENSE INHALER PREFERRED BY PATIENT INSURANCE Neomycin-Polymyxin B Sulfates 10 mL drops 1 gtt EACH EAR BID PRN (Reason: Ear Pain) hydroxychloroquine 200 mg Tablet 200 mg PO DAILY cyanocobalamin (vitamin B-12) 1,000 mcg tablet 1,000 mcg PO DAILY Patient Comments: TAKE 1 TABLET BY MOUTH DAILY tumeric capsule PO DAILY loratadine 10 mg tablet 10 mg PO DAILY Qty: 30 6RF carvedilol 12.5 mg tablet 12.5 mg PO BID Qty: 60 11RF atorvastatin 10 mg tablet 10 mg PO QHS Qty: 30 11RF potassium chloride [Klor-Con M20] 20 mEq tablet,ER particles/crystals 20 meq PO DAILY Qty: 30 11RF spironolactone 25 mg tablet 25 mg PO DAILY Qty: 30 11RF Farxiga 10 mg tablet 10 mg PO DAILY Qty: 30 11RF Primary Care Provider: Cem Connor Referrals: Josué Martin DPM [Med Staff - Active Staff] - 5-7 Days Cem Connor DO [Primary Care Provider] - Activity Restrictions/Additional Instructions: 1. Apply ice to your right ankle 6-10 times a day 2. Bear weight as tolerated 3. Wear the walking boot while you are up and about. You may remove it to go to sleep Print Language: Ukrainian
[2024-04-20] MEDS: HYDROcodone Bitartrate/Apap 5/325 Tablet PO (14:57)
[2024-04-20 15:08] VITALS: BP 125/78; PULSE 72; RESP 18; TEMP 36.3; O2SAT 96
== END 2024-04-20 15:09 | disposition home or self-care (01) ==
PROVIDERS: Emergency Provider Emergency Medicine; PCP Family Medicine; Visit Provider Emergency Medicine
DX: S82.64XA Nondisplaced fracture of lateral malleolus of right fibula, initial encounter for closed fracture (principal); F25.0 Schizoaffective disorder, bipolar type; I50.22 Chronic systolic (congestive) heart failure; I13.0 Hypertensive heart and chronic kidney disease with heart failure and stage 1 through stage 4 chronic kidney disease, or unspecified chronic kidney disease; I42.8 Other cardiomyopathies; Z68.43 Body mass index [BMI] 50.0-59.9, adult; E11.22 Type 2 diabetes mellitus with diabetic chronic kidney disease; E11.65 Type 2 diabetes mellitus with hyperglycemia; W18.39XA Other fall on same level, initial encounter; Y93.K1 Activity, walking an animal; N18.9 Chronic kidney disease, unspecified; F17.210 Nicotine dependence, cigarettes, uncomplicated; F17.290 Nicotine dependence, other tobacco product, uncomplicated; E66.3 Overweight; Z79.82 Long term (current) use of aspirin; Z79.84 Long term (current) use of oral hypoglycemic drugs; Z79.899 Other long term (current) drug therapy
CPT/HCPCS: 73610; 99284

== ENCOUNTER → 2024-05-10 | Outpatient (CLI) | payer MEDICAID, SELFPAY ==
--- NOTE | 2024-05-10 11:43 | RAD_ITS ---
EXAM: XR RIGHT ANKLE COMPLETE, 3 OR MORE VIEWS CLINICAL INDICATION: Displaced fracture of lateral malleolus of right fibula, subseque TECHNIQUE: Frontal, lateral and oblique views of the right ankle. COMPARISON: 04/20/2024 FINDINGS: BONES/JOINTS: There is a well-corticated bony fragment adjacent to the medial malleolus from old injury. No acute fracture. No subluxation. Normal alignment. Preservation of the joint space. No sclerotic or destructive changes observed. SOFT TISSUES: There is soft tissue swelling over the lateral malleolus. This is mildly decreased from the reference exam. Subtle lucency at the lateral malleolus is also not as well-visualized and may represent a healing fracture. No radiopaque foreign body. RAD/Ankle min 3 Views IMPRESSION: Decreased soft tissue swelling over the lateral malleolus. Subtle nondisplaced fracture of the lateral malleolus is also not as well-visualized on today''s exam which may represent healing. Electronically Signed: Scott Plaza MD at 22:33 EDT ,
== END | disposition home or self-care (01) ==
LOC: RAD 11:43
PROVIDERS: PCP Family Medicine; Referring Provider Family Medicine; Visit Provider Family Medicine
DX: S82.61XD Displaced fracture of lateral malleolus of right fibula, subsequent encounter for closed fracture with routine healing (principal)
CPT/HCPCS: 73610

== ENCOUNTER → 2024-09-20 | Outpatient (CLI) | payer MEDICAID, SELFPAY ==
--- NOTE | 2024-09-20 14:57 | ECHOD_ITS ---
Reason For Study: CHF Procedure This was a 2D Doppler, Color Flow transthoracic echocardiogram. Exam performed in department. Left Ventricle Mild concentric left ventricular hypertrophy. Normal LV size. The left ventricular ejection fraction is 50 %. Stage 1 diastolic dysfunction. Right Ventricle Normal right ventricle. Atria The left atrium is mildly enlarged. Normal right atrium. Mitral Valve Trivial mitral valve insufficiency. Tricuspid Valve Trivial tricuspid valve insufficiency. Unable to estimate RV systolic pressure due to insufficient tricuspid regurgitant envelope. Aortic Valve The aortic valve is not well visualized in the short axis view. There is no aortic stenosis. No aortic valve insufficiency. Pulmonic Valve The pulmonic valve is not well visualized. Great Vessels Normal sized aortic root. Pericardium/Pleural No pericardial effusion. MMode/2D Measurements & Calculations LVIDd: 5.4 cm IVSd: 1.2 cm Ao root diam: 3.0 cm LVPWd: 0.89 cm LA dimension: 4.2 cm LAV(MOD-bp): 39.7 ml LVAd ap4: 22.9 cm2 SV(MOD-sp4): 26.3 ml LAV(MOD-bp) Indexed: 17.7 ml/m2 LVLd ap4: 7.6 cm SI(MOD-sp4): 11.7 ml/m2 LAV(MOD-sp2): 47.2 ml EDV(MOD-sp4): 59.1 ml LAV(MOD-sp4): 25.0 ml EDV(sp4-el): 59.0 ml LVAs ap4: 15.2 cm2 LVLs ap4: 6.1 cm ESV(MOD-sp4): 32.8 ml ESV(sp4-el): 32.0 ml EF(MOD-sp4): 44.4 % EF(sp4-el): 45.8 % SV(sp4-el): 27.0 ml LA A4 area: 11.1 cm2 LA dimension(2D): 3.4 cm RA A4 area: 7.9 cm2 Time Measurements MV dec time: 0.20 sec Doppler Measurements & Calculations MV E max woodrow: 64.2 cm/sec Lat Peak E' Woodrow: 8.3 cm/sec Med Peak E' Woodrow: 6.9 cm/sec MV A max woodrow: 68.9 cm/sec E/E' lat: 7.7 E/E' med: 9.2 MV E/A: 0.93 MV V2 max: 78.7 cm/sec Ao V2 max: 144.6 cm/sec MV max P.5 mmHg MV dec slope: 326.1 cm/sec2 Ao max P.4 mmHg MV V2 mean: 46.1 cm/sec Ao V2 mean: 101.1 cm/sec MV mean P.99 mmHg Ao mean P.6 mmHg MV V2 VTI: 30.1 cm Ao V2 VTI: 29.5 cm AV (velocity ratio): 0.93 LV V1 max: 129.9 cm/sec LV V1 max P.8 mmHg LV V1 mean P.1 mmHg LV V1 mean: 94.6 cm/sec LV V1 VTI: 27.6 cm ECHO/Echo Complete Interpretation Summary Mild concentric left ventricular hypertrophy. The left ventricular ejection fraction is 50 %. Stage 1 diastolic dysfunction. The left atrium is mildly enlarged. Ordering Physician: Elisabeth Richey Referring Physician: Elisabeth Richey Performed By: Sandy Sewell RCS
== END | disposition home or self-care (01) ==
LOC: CVS 14:56
PROVIDERS: PCP Family Medicine; Referring Provider Physician Assistant Medical; Visit Provider Physician Assistant Medical
DX: I42.8 Other cardiomyopathies (principal)
CPT/HCPCS: 93306

== ENCOUNTER → 2025-07-09 | Outpatient (CLI) | payer MEDICAID, SELFPAY ==
[2025-07-09 16:41] LABS: Hematocrit 47.6 % (37-47); Hemoglobin 15.5 g/dL (12.0-15.0); Immature Granulocytes Count 0.040 X10^3/uL (0.0-0.0); Mean Corp Hgb Conc 32.6 g/dL (32-36); Mean Corpuscular Volume 87.8 fL (81-99); Mean Platelet Vol. 9.2 fl (6.2-12.0); NRBC Flagged by Analyzer 0 % (0-5); Platelet Count 328 K/mm3 (150-450); RBC Distribution Width CV 13.4 % (11.6-14.6); RBC Distribution Width SD 42.7 fl (35.1-43.9); Red Blood Count 5.42 M/mm3 (4.2-5.4); White Blood Count 11.0 K/mm3 (4.4-11.0)
[2025-07-09 17:24] LABS: AST(SGOT) 18 U/L (<=31); Alanine Aminotransfer ALT/SGPT 16 U/L (<=34); Albumin, Serum 4.3 g/dL (3.5-5.0); Alkaline Phosphatase 154 U/L (35-104); Anion Gap 11 (5-15); BUN 16 mg/dL (4-19); BUN/Creat Ratio 16.9 RATIO (10-20); Calcium,Total 9.0 mg/dL (7.6-11.0); Carbon Dioxide 26.0 mmol/L (21.0-32.0); Chloride 103 mmol/L (98-108); Globulin 3.3 g/dL (2.2-4.2); Glucose 121 mg/dL (70-99); Potassium 3.9 mmol/L (3.3-5.1); Vitamin D,25 Hydroxy 36.2 ng/mL (30-100)
== END | disposition home or self-care (01) ==
LOC: LAB 15:35
PROVIDERS: PCP Family Medicine; Referring Provider Physician Assistant Medical; Visit Provider Physician Assistant Medical
DX: I10 Essential (primary) hypertension (principal); I42.8 Other cardiomyopathies; R53.83 Other fatigue
CPT/HCPCS: 36415; 80053; 82306; 84443; 85025